=== PATIENT | female | born 1970 | race Caucasian/White ===

== ENCOUNTER 2020-12-20 08:40 | Emergency (ER) | payer BC ==
[~2020-12-20 08:40] MED LIST: BL IBUPROFEN200 MG PO; KEFLEX500 MG PO; LORTAB 5/3255 MG PO; MAXZIDE1 TAB PO; MEDDOSEPAK PO; NYSTATIN100000 M1 MT; PROAIR HFA IN; SILVADENE1 % TOP; SYMBICORT1 AE1 IN; ZITHROMAX250 MG PO
[2020-12-20] MEDS ORDERED: [UNRECOGNIZED DRUG - OTHER] PO (09:26)
[2020-12-20] MEDS ORDERED: ELIQUIS2.5 MG (09:26)
[2020-12-20] MEDS ORDERED: CARVEDILOL25 MG PO (09:26)
[2020-12-20] MEDS ORDERED: ENTRESTO 24-261 TAB PO (09:27)
[2020-12-20] MEDS ORDERED: SM OMEPRAZOL20 MG PO (09:27)
[2020-12-20] MEDS ORDERED: PAROXETINE20 MG PO (09:28)
[2020-12-20] MEDS ORDERED: [UNRECOGNIZED DRUG - OTHER] PO (09:30)
[2020-12-20 09:33] LABS: HEMATOCRIT 35.7 % (37.0-47.0); HEMOGLOBIN 11.6 g/dl (12.0-16.0); IMMATURE GRANULOCYTES 0.3 % (0.0-5.0); MEAN CELL VOLUME 89.7 fL CALC (80.0-100.0); MEAN CORPUSCULAR HGB 29.1 pG CALC (26.0-32.0); MEAN CORPUSCULAR HGB CONC 32.5 g/dL CAL (32.0-36.0); NEUT# 3.74 thou/uL (2.00-7.15); RED BLOOD COUNT 3.98 mill/uL (4.20-5.60); RED CELL DISTRI WIDTH 14.7 % (11.5-15.5); URINE BILIRUBIN - DIPSTICK NEGATIVE (NEGATIVE); URINE BLOOD DIPSTICK SMALL (NEGATIVE); URINE COLOR STRAW; URINE GLUCOSE - DIPSTICK NEGATIVE (NEGATIVE); URINE KETONE NEGATIVE (NEGATIVE); URINE LEUK ESTERASE NEGATIVE (NEGATIVE); URINE NITRITE - DIPSTICK NEGATIVE (Negative); URINE PROTEIN - DIPSTICK NEGATIVE (NEG-TRACE); URINE SPECIFIC GRAVITY 1.015; URINE UROBILINOGEN - DIPSTICK 0.2 E.U./dL (0.2)
[2020-12-20 09:34] LABS: URINE EPITHELIAL CELLS RARE EPI/hpf (0-FEW); URINE RBC 0-2 RBC/hpf (0-5)
[2020-12-20 09:47] LABS: ACT PARTIAL THROMBO TIME 23.1 SECONDS (20.0-32.5); INTERNATIONAL NORMALIZED RATIO 1.1 RATIO (0.7-1.3); PROTHROMBIN TIME 10.8 SECONDS (9.0-12.5)
[2020-12-20 09:54] LABS: ALBUMIN 4.4 g/dL (3.2-5.0); ALKALINE PHOSPHATASE 82 u/l (38-126); AMYLASE 45 u/l (30-110); ANION GAP 14 (6-22 (CALC)); BILIRUBIN, TOTAL 0.5 mg/dL (0.0-1.4); BUN 17 mg/dL (7-17); BUN/CREATININE RATIO 15 (12-20 (CALC)); CARBON DIOXIDE 26 mmol/l (22-30); CHLORIDE 105 mmol/l (95-108); CREATININE 1.2 mg/dL (0.5-1.0); ETHYL ALCOHOL 0 mg/dl (0-30); GFR 48 ML/MIN (>=60 (CALC)); GFR FOR AFR.AMER. 58 ML/MIN (>=60 (CALC)); LIPASE 50 u/l (23-300); POTASSIUM 4.1 mmol/l (3.5-5.1); SGOT/AST 24 u/l (14-36); SODIUM 140 mmol/l (137-146); TOTAL PROTEIN 6.9 g/dL (6.3-8.2)
[2020-12-20 12:15] VITALS: BP 120/91
== END 2020-12-20 12:15 | disposition home or self-care (01) | DRG 392 ==
LOC: ED 08:40
DX: R10.9 Unspecified abdominal pain (principal); R19.7 Diarrhea, unspecified; R11.0 Nausea; I50.9 Heart failure, unspecified; J45.909 Unspecified asthma, uncomplicated; I48.91 Unspecified atrial fibrillation; Z86.16 Personal history of COVID-19; Z86.711 Personal history of pulmonary embolism; Z86.718 Personal history of other venous thrombosis and embolism; Z20.822 Contact with and (suspected) exposure to COVID-19
CPT/HCPCS: Q9967

== ENCOUNTER 2021-06-23 08:21 | Emergency (ER) | payer BC ==
[~2021-06-23] VITALS: Ht 157.5 cm; Wt 83.0 kg
[~2021-06-23 08:21] MED LIST changes: +CARVEDILOL25 MG PO; +ELIQUIS2.5 MG PO; +ENTRESTO 24-261 TAB PO; +PAXIL30 MG PO; +QUETIAPINE FUM100 MG PO; +SM OMEPRAZOL20 MG PO; +[UNRECOGNIZED DRUG - OTHER] PO
[2021-06-23 08:59] LABS: HEMATOCRIT 35.4 % (37.0-47.0); HEMOGLOBIN 11.7 g/dl (12.0-16.0); MEAN CELL VOLUME 89.8 fL CALC (80.0-100.0); MEAN CORPUSCULAR HGB 29.7 pG CALC (26.0-32.0); MEAN CORPUSCULAR HGB CONC 33.1 g/dL CAL (32.0-36.0); NEUT# 5.56 thou/uL (2.00-7.15); RED BLOOD COUNT 3.94 mill/uL (4.20-5.60); RED CELL DISTRI WIDTH 14.9 % (11.5-15.5)
[2021-06-23 09:11] LABS: ALKALINE PHOSPHATASE 87 u/l (38-126); BILIRUBIN, TOTAL 0.6 mg/dL (0.0-1.4); BUN 22 mg/dL (7-17); BUN/CREATININE RATIO 22 (12-20 (CALC)); CARBON DIOXIDE 29 mmol/l (22-30); CHLORIDE 107 mmol/l (95-108); GFR 59 ML/MIN (>=60 (CALC)); GFR FOR AFR.AMER. > 60 ML/MIN (>=60 (CALC)); SGOT/AST 23 u/l (14-36); SODIUM 143 mmol/l (137-146); TOTAL PROTEIN 6.9 g/dL (6.3-8.2)
[2021-06-23 09:15] LABS: ANION GAP 10 (6-22 (CALC)); POTASSIUM 3.1 mmol/l (3.5-5.1)
[2021-06-23] MEDS ORDERED: MEDDOSEPAK PO (10:44)
[2021-06-23] MEDS ORDERED: ZPAK PO (10:44)
[2021-06-23 10:45] VITALS: BP 151/99
== END 2021-06-23 11:02 | disposition home or self-care (01) | DRG 203 ==
LOC: ED 08:21
DX: J45.909 Unspecified asthma, uncomplicated (principal); E87.6 Hypokalemia; I50.9 Heart failure, unspecified; I48.91 Unspecified atrial fibrillation; Z86.16 Personal history of COVID-19; Z86.711 Personal history of pulmonary embolism; Z20.822 Contact with and (suspected) exposure to COVID-19

== ENCOUNTER 2021-06-25 12:17 | Observation (INO) | payer BC ==
[~2021-06-25] VITALS: Ht 157.5 cm; Wt 83.1 kg
[~2021-06-25 12:17] MED LIST changes: +ZPAK PO
--- NOTE | 2021-06-25 12:20 | NUR ---
PT PRESENTS WITH SOB. RECENT VISIT TO ED T-2 DAYS PRIOR WITH ASTHMATIC BRONCHITIS. PT PROVIDED ANTIBIOTIC AND STERIOD WITH NO IMPROVEMENT OF SYMPTOMS. PT REPORTS INCREASING SOB TODAY.
[2021-06-25 13:18] LABS: HEMOGLOBIN 12.7 g/dl (12.0-16.0); IMMATURE GRANULOCYTES 0.8 % (0.0-5.0); MEAN CELL VOLUME 90.5 fL CALC (80.0-100.0); MEAN CORPUSCULAR HGB 29.5 pG CALC (26.0-32.0); MEAN CORPUSCULAR HGB CONC 32.6 g/dL CAL (32.0-36.0); NEUT# 9.03 thou/uL (2.00-7.15); RED BLOOD COUNT 4.31 mill/uL (4.20-5.60); RED CELL DISTRI WIDTH 14.8 % (11.5-15.5)
--- NOTE | 2021-06-25 13:20 | NUR ---
PATIENT SITTING UP IN BED RESTING IN NO ACUTE DISTRESS.
[2021-06-25 13:36] LABS: ALBUMIN 4.5 g/dL (3.2-5.0); ALKALINE PHOSPHATASE 92 u/l (38-126); ANION GAP 15 (6-22 (CALC)); BILIRUBIN, TOTAL 0.5 mg/dL (0.0-1.4); BUN 38 mg/dL (7-17); BUN/CREATININE RATIO 24 (12-20 (CALC)); CARBON DIOXIDE 27 mmol/l (22-30); CHLORIDE 102 mmol/l (95-108); CREATININE 1.6 mg/dL (0.5-1.0); GFR 34 ML/MIN (>=60 (CALC)); GFR FOR AFR.AMER. 42 ML/MIN (>=60 (CALC)); POTASSIUM 3.4 mmol/l (3.5-5.1); SGOT/AST 31 u/l (14-36); SODIUM 140 mmol/l (137-146); TOTAL PROTEIN 7.4 g/dL (6.3-8.2)
--- NOTE | 2021-06-25 14:20 | NUR ---
PATIENT SITTING IN BED RESTING. NO ACUTE DISTRESS.
[2021-06-25] MEDS ORDERED: OMEPRAZOLE20 MG PO (15:15)
--- NOTE | 2021-06-25 15:20 | NUR ---
PATIENT SITTING UP IN BED IN NO ACUTE DISTRESS.
[2021-06-25] MEDS ORDERED: MIRTAZAPINE15 MG PO (16:21)
[2021-06-25] MEDS ORDERED: HYDROXYZ HCL25 MG PO (16:21)
[2021-06-25] MEDS ORDERED: SEROQUEL XR50 MG PO (16:22)
[2021-06-25] MEDS ORDERED: ADVAIR DISK1 IN (16:23)
[2021-06-25] MEDS ORDERED: OMEPRAZOLE DR40 MG PO (16:25)
[2021-06-25] MEDS ORDERED: CARVEDILOL6.25 MG PO (16:25)
[2021-06-25] MEDS ORDERED: TORSEMIDE20 M1 PO (16:26)
--- NOTE | 2021-06-25 16:49 | NUR ---
PATIENT SITTING IN BED. OFFERED TOILETING. VISITOR AT BEDSIDE.
--- NOTE | 2021-06-25 17:00 | NUR ---
RECIVED REPORT FROM BRIAN FROM ER
[2021-06-25 17:38] VITALS: BP 162/91
--- NOTE | 2021-06-25 18:00 | NUR ---
PT SETTLED IN ROOM. ASSESSMENT WAS PERFORMED: HEART SOUNDS IRREGULAR. LUNG SOUNDS WHEEZING WITH EXPIRATORY POSTERIORLY. BOWEL SOUNDS ARE ACTIVE X4. RADIAL PULSE STRONG EQUALLY BILATERALLY. PEDAL PULSES STRONG EQUALLY BILATERALLY. SKIN IS WARM/DRY INTACT. #20G LAC IV IS PATENT INFUSING AZITHROMYCIN. PT IS CALM NOT SHOWING ANY SIGN OF DISTRESS. PT STATES NO PAIN AT THIS TIME. PT ENCOURAGED TO USE CALL LIGHT FOR ASSISTANCE. CALL LIGHT AND PERSONAL BELONGINGS ARE WITHIN REACH. ORIENTATED PT TO ROOM.
[2021-06-25 19:00] VITALS: BP 139/76
--- NOTE | 2021-06-25 19:30 | NUR ---
PT AWAKE IN HIGH FOWLERS WATCHING TV AND LAPTOP COMPUTER IN LAP. IV TUBING STILL CONNECTED TO THE PT WITH ABX PUMP TURNED OFF. SITE WAS FLUSHED, STILL PATENT/HEALTHY. PT AMBULATED TO RESTROOM AND BACK TO THE BED BECOMING VERY SOB WITH WHEEZING UPON AMBULATING. PT RECOVERED QUICKLY AND POC WAS DISCUSSED. SHE REPORTED WANTING TO LEAVE HOSPITAL TOMORROW PREFERABLY. MEDICATIONS WERE ALSO DISCUSSED AND I INFORMED HER THAT WE DO NOT CARRY ENTRESTO AND THAT IT WOULD NEED TO BE BROUGHT FROM HOME. SHE REPORTED THAT SHE DID NOT HAVE ANYBODY THAT COULD BRING IT THIS EVENING, BUT POSSIBLY TOMORROW IF SHE NEEDED TO STAY. SHE REPORTS FEELING MUCH BETTER THAN PRIOR TO ARRIVING TO HOSPITAL. IVF ADMINISTERED PER ORDERS AT THIS TIME AND PT INSTRUCTED TO CALL IF SHE FEELS CHEST PRESSURE OR AN INCREASE IN SOB, DUE TO THE FLUID RUNNING. SHE VERBALIZED UNDERSTANDING AND WE DISCUSSED THE BALANCING OF KIDNEY FUNCTION/LABS AND CHF ISSUES. SHE REPORTS THAT SHE TAKES A WATER PILL ALSO. CALL LIGHT IS W/IN REACH AND PT LEFT IN BED WITH COMPUTER IN LAP, LIGHTS AND TV ARE ON.
--- NOTE | 2021-06-25 21:10 | NUR ---
PT MEDICATED ORDERS PROVIDE. PT DENIES ANY NEEDS. SHE IS AWAKE, UPRIGHT IN BED WITH TV ON AND WORKING ON LAPTOP COMPUTER. NO S/O DISTRESS.
--- NOTE | 2021-06-25 21:45 | NUR ---
PT JUST RETURNING FROM RESTROOM, APPEARS TO TOLERATE AMBULATING BETTER THIS TIME, LESS WHEEZING AND SOB. URINE COLLECTED AND TAKEN TO LAB AT THIS TIME.
[2021-06-25 21:58] LABS: URINE BILIRUBIN - DIPSTICK NEGATIVE (NEGATIVE); URINE BLOOD DIPSTICK SMALL (NEGATIVE); URINE COLOR YELLOW; URINE GLUCOSE - DIPSTICK NEGATIVE (NEGATIVE); URINE KETONE NEGATIVE (NEGATIVE); URINE LEUK ESTERASE NEGATIVE (NEGATIVE); URINE PROTEIN - DIPSTICK NEGATIVE (NEG-TRACE); URINE SPECIFIC GRAVITY 1.025; URINE UROBILINOGEN - DIPSTICK 0.2 E.U./dL (0.2)
[2021-06-25 22:00] LABS: URINE NITRITE - DIPSTICK NEGATIVE (Negative)
[2021-06-25 22:06] LABS: URINE SQUAMOUS EPITHELIAL CELL FEW EPI/hpf (0-FEW); URINE WBC 0-2 WBC/hpf (0-5)
--- NOTE | 2021-06-26 00:49 | NUR ---
PT IV FOUND LEAKING AND BLOODY. IV REMOVED FROM RAC/SITE APPEARS HEALTHY, PT DENIES PAIN AT SITE. ATTEMPTS FOR NEW IV X2, NO ACCESS OBTAINED. WILL AWAIT ICU NURSE FOR ASSISTANCE.
--- NOTE | 2021-06-26 03:35 | NUR ---
pt awake, asked for additional ginerale. Ambulated to restroom, becoming mildly sob upon exertion.
[2021-06-26 04:00] VITALS: BP 133/65
[2021-06-26 06:06] LABS: HEMATOCRIT 34.4 % (37.0-47.0); HEMOGLOBIN 11.5 g/dl (12.0-16.0); MEAN CELL VOLUME 89.4 fL CALC (80.0-100.0); MEAN CORPUSCULAR HGB 29.9 pG CALC (26.0-32.0); MEAN CORPUSCULAR HGB CONC 33.4 g/dL CAL (32.0-36.0); RED BLOOD COUNT 3.85 mill/uL (4.20-5.60); RED CELL DISTRI WIDTH 14.8 % (11.5-15.5)
[2021-06-26 06:22] LABS: CREATININE 1.2 mg/dL (0.5-1.0); MAGNESIUM 1.8 mg/dL (1.6-2.3); POTASSIUM 3.7 mmol/l (3.5-5.1)
[2021-06-26 06:43] LABS: CHOLESTEROL HDL RATIO 1.9 (<4.4 (CALC))
--- NOTE | 2021-06-26 07:00 | NUR ---
RECIEVED REPORT FROM ASHWIN RASHEED
[2021-06-26 07:21] VITALS: BP 151/79
--- NOTE | 2021-06-26 07:21 | NUR ---
PT RESTING IN SEMI FOWLERS POSITION. PT IS A/O X3. ASSESSMENT AND VITALS COMPLETED. BP 151/79, HR 84, O2 93% ON ROOM AIR. RESPIRATIONS ARE EVEN AND UNLABORED WITH NO DISTRESS NOTED. LUNG SOUNDS ARE COURSE. HEART RHYTHM NORMAL WITH TELE IN PLACE. BOWEL SOUNDS ARE ACTIVE X4 QUADRANTS. #20G LAC INFUSING IWTH IVF PER ORDER, SITE REMAINS HEALTHY AND PATENT. SKIN INTACT. PULSES STRONG. PT COMPLAINS OF 3/10 ABD PAIN FROM COUGHING, PT TO BE MEDICATED PER EMAR. PT DENIES OF ANY ADDITIONAL PAINS OR DISCOMFORTS. ALL SAFETY PRECAUTIONS ARE IN PLACE WITH CALL LIGHT IN REACH. WILL CONTINUE TO MONITOR.
--- NOTE | 2021-06-26 10:17 | NUR ---
DR MAGALLON AND KAVON,ANRP AT BEDSIDE
[2021-06-26 11:25] VITALS: BP 124/80
[2021-06-26] MEDS ORDERED: ZITHROMAX250 MG PO (12:08)
[2021-06-26] MEDS ORDERED: PREDNISONE10 MG PO (12:09)
[2021-06-26] MEDS ORDERED: IPRATROPIU0.5 MG/3 M IN (12:09)
[2021-06-26] MEDS ORDERED: NEBULIZE1 (12:11)
--- NOTE | 2021-06-26 12:13 | NUR ---
PT RESTING IN SEMI FOWLERS POSITION WATCHING TV. RESPIRATIONS ARE EVEN AND UNLABORED WITH NO DISTRESS NOTED ON ROOM AIR. #20G REMAINS INFUSING WITH IVF PER ORDER, SITE REMAINS HEALTHY AND PATENT. TELE MONITORING IN PLACE. PT DENIES OF ANY PAINS OR DISCOMFORTS AT THIS TIME. ALL SAFETY PRECAUTIONS AER IN PLACE WITH CALL LIGHT IN REACH. WILL CONTINUE TO MONITOR.
--- NOTE | 2021-06-26 13:28 | NUR ---
PT EDUCATED ON DC INSTRUCTIONS AND NEW MEDICATIONS. PT VERBALIZED UNDERSTANDING. #20G RAC REMOVED WITH CATH STILL INTACT. TELE MONITORING REMOVED, ER NOTIFIED. WORK NOTE GIVEN TO PT. PT TO DRIVE HOME.
--- NOTE | 2021-06-26 13:37 | NUR ---
Discharge instructions given. Patient verbalizes understanding of same. Discharged in stable condition via Wheelchair to Home with staff. All belongings sent with pt. PT DC HOME VIA WHEELCHAIR IN STABLE CONDITION ACCOMPAINED BY MARILUZ DELACRUZ WITH ALL DC INSTRUCTIONS AND BELONGINGS.
== END 2021-06-26 13:37 | disposition home or self-care (01) | DRG 191 ==
LOC: ED 12:17 → ED-I 14:40 → ED 14:52 → MS2 14:53
PROVIDERS: Family Medicine; Nurse Practitioner; ADMIT Internal Medicine; ATTEND Internal Medicine
DX: J44.1 Chronic obstructive pulmonary disease with (acute) exacerbation (principal); J45.901 Unspecified asthma with (acute) exacerbation; N17.9 Acute kidney failure, unspecified; I11.0 Hypertensive heart disease with heart failure; I50.9 Heart failure, unspecified; I48.91 Unspecified atrial fibrillation; F41.9 Anxiety disorder, unspecified; K21.9 Gastro-esophageal reflux disease without esophagitis; F32.A Depression, unspecified; B33.24 Viral cardiomyopathy; Z87.891 Personal history of nicotine dependence; Z86.16 Personal history of COVID-19; Z86.711 Personal history of pulmonary embolism; Z79.01 Long term (current) use of anticoagulants; Z20.822 Contact with and (suspected) exposure to COVID-19
CPT/HCPCS: G0378

== ENCOUNTER 2021-06-29 14:47 | Observation (INO) | payer BC ==
[~2021-06-29] VITALS: Ht 157.5 cm; Wt 89.0 kg
[~2021-06-29 14:47] MED LIST changes: +ADVAIR DISK1 IN; +CARVEDILOL6.25 MG PO; +HYDROXYZ HCL25 MG PO; +IPRATROPIU0.5 MG/3 M IN; +MIRTAZAPINE15 MG PO; +NEBULIZE1; +OMEPRAZOLE DR40 MG PO; +OMEPRAZOLE20 MG PO; +PREDNISONE10 MG PO; +SEROQUEL XR50 MG PO; +TORSEMIDE20 M1 PO
--- NOTE | 2021-06-29 14:55 | NUR ---
PATIENT TO ROOM VIA EMS AND PHYSICIAN NOTIFIED OF PATIENT STATUS
--- NOTE | 2021-06-29 15:35 | NUR ---
PATIENT LYING IN BED. PATIENT MEDICATED.
[2021-06-29 15:53] LABS: HEMATOCRIT 39.8 % (37.0-47.0); HEMOGLOBIN 13.2 g/dl (12.0-16.0); IMMATURE GRANULOCYTES 1.1 % (0.0-5.0); MEAN CELL VOLUME 90.2 fL CALC (80.0-100.0); MEAN CORPUSCULAR HGB 29.9 pG CALC (26.0-32.0); MEAN CORPUSCULAR HGB CONC 33.2 g/dL CAL (32.0-36.0); NEUT# 12.17 thou/uL (2.00-7.15); RED BLOOD COUNT 4.41 mill/uL (4.20-5.60); RED CELL DISTRI WIDTH 14.8 % (11.5-15.5)
[2021-06-29 15:55] LABS: URINE BILIRUBIN - DIPSTICK NEGATIVE (NEGATIVE); URINE BLOOD DIPSTICK SMALL (NEGATIVE); URINE COLOR YELLOW; URINE GLUCOSE - DIPSTICK NEGATIVE (NEGATIVE); URINE KETONE NEGATIVE (NEGATIVE); URINE LEUK ESTERASE TRACE (NEGATIVE); URINE PH 6.5 (4.5-8.0); URINE PROTEIN - DIPSTICK NEGATIVE (NEG-TRACE); URINE SPECIFIC GRAVITY <=1.005; URINE UROBILINOGEN - DIPSTICK 0.2 E.U./dL (0.2)
[2021-06-29 16:06] LABS: URINE NITRITE - DIPSTICK NEGATIVE (Negative)
[2021-06-29 16:12] LABS: ALBUMIN 4.1 g/dL (3.2-5.0); BILIRUBIN, TOTAL 0.4 mg/dL (0.0-1.4); CREATININE 1.2 mg/dL (0.5-1.0); POTASSIUM 3.1 mmol/l (3.5-5.1); TOTAL PROTEIN 6.8 g/dL (6.3-8.2); URINE SQUAMOUS EPITHELIAL CELL FEW EPI/hpf (0-FEW)
--- NOTE | 2021-06-29 16:30 | NUR ---
PATIENT DENIES NEEDS AT THIS TIME.
--- NOTE | 2021-06-29 17:30 | NUR ---
PATIENT IN BED DENIES NEEDS
[2021-06-29] MEDS ORDERED: METRONIDAZOLE500 MG PO (17:43)
[2021-06-29] MEDS ORDERED: CIPROFLOXACN500 MG PO (17:43)
[2021-06-29] MEDS ORDERED: HYDROCO/APAP1 TA9 PO (17:43)
[2021-06-29] MEDS ORDERED: ONDANSETRON4 MG PO (17:43)
--- NOTE | 2021-06-29 18:30 | NUR ---
PAIENT LYING IN BED/ MEDICATED FOR COMFORT. DENIES FURTHER NEEDS AT THIS TIME.
--- NOTE | 2021-06-29 19:35 | NUR ---
W/P/D SKIN PT RATES PAININ ABD AT 2 ON SCALE NO NAUSEA.PT REPORT TO JAMEY RASHEED ON MS
--- NOTE | 2021-06-29 19:40 | NUR ---
PT TRANSPORTED TO RN 273 VIA stretcher in stable condition
[2021-06-29 20:00] VITALS: BP 178/101
--- NOTE | 2021-06-29 20:00 | NUR ---
PT ARRIVED TO MED SURG VIA STRETCHER AND SELF AMBULATED TO THE BED. PT APPEARS TO BE IN PAIN AT THIS TIME. ED NURSE REPORTS HAIVING MEDICATED PT FOR PAIN. REPORTEDLY IN HER BACK AND LEGS PER PT. PHYSICIAN NOTIFIED. V/S ASSESSED, BP ELEVATED AND WILL REASSESS POST PAIN MEDICATION. K-RIDER IS JUST COMPLETING UPON PT ARRIVING TO THE MS ROOM. IV SITE FLUSHED PATENT. PT WAS ORIENTED TO ROOM, CALL SYSTEM, LIGHTS, TV AND BED.
--- NOTE | 2021-06-29 22:21 | NUR ---
PT MEDICATED FOR PAIN 7/10 ON PAIN SCALE REPORTED TO BE IN LOWER ABD BILAT. PT DENIES N/V/D AT THIS TIME. LIGHTS ARE OFF AND PT IS WATCHING TV SHOW.
--- NOTE | 2021-06-29 23:48 | NUR ---
PT MEDICATED WITH IV ANTIBIOTIC THERAPY. LIGHTS ARE TURNED OUT, SHE IS AWAKE WATCHING TV. ICE PROVIDED AND DIET DISCUSSED AT THIS TIME. I OFFERED HER ADDITIONAL CLEAR LIQUIDS AT THIS TIME, DENIED ANY. WATER AND ICE CHIPS PROVIDED. CALL LIGHT IS W/IN REACH.
[2021-06-30] VITALS (12 sets, daily range): BP systolic 140–215; BP diastolic 73–118
--- NOTE | 2021-06-30 01:24 | NUR ---
PT MEDICATED ORDER PROVIDE FOR PAIN 7/10 ON PAIN SCALE REPORTEDLY IN BACK AND LOWER ABD
--- NOTE | 2021-06-30 04:06 | NUR ---
PT MEDICATED FOR PAIN IN LEGS, BACK AND ABD
--- NOTE | 2021-06-30 05:10 | NUR ---
PT WAS SLEEPING SOUNDLY, AWOKE TO MY VOICE. IV ANTIBIOTICS ADMINISTERED AT THIS TIME.
--- NOTE | 2021-06-30 06:35 | NUR ---
REPORT FROM KATHYA CHRISTOPHER. ASSUMED PT CARE.
--- NOTE | 2021-06-30 07:53 | NUR ---
PHONE CALL PLACED TO PHARMACY REGARDING PRN HYDRALAZINE, MEDICATION NOT PROFILED DUE TO PHARMACIST IN ED EMERGENCY. WILL MEDICATE PT FOR PAIN AT THIS TIME AND CONTINUE TO MONITOR.
--- NOTE | 2021-06-30 08:00 | NUR ---
PT MEDICATED FOR BACK PAIN 04/02. PRN HYDRALAZINE PROFILED BELKYS CHRISTOPHER TO ADMINISTER FOR BP OF 215/118 HR 124. WILL REASSESS AND CONTINUE TO MONITOR.
--- NOTE | 2021-06-30 08:06 | NUR ---
APPRESOLINE ADMINISTEER 10MG AT THIS TIME PATIENT TOLERATED ADMININSTRATION WITHOUT ISSUE. WILL CONTINUE TO MONITOR.
--- NOTE | 2021-06-30 09:15 | NUR ---
NOTIFIED VISHNU CASTLE OF CONTINUED ELEVATED HR OF 126 AND BP 175/109 AFTER PRN MEDICATION ADMINISTRATION. NEW ORDERS. PT PLACED ON TELEMETRY AT THIS TIME. RN TO ADMINISTER IV MEDICATIONS ONCE PROFILED BY PHARMACY. WILL CONTINUE TO MONITOR AND REASSESS.
[2021-06-30 09:19] LABS: ANION GAP 11 (6-22 (CALC)); BUN 18 mg/dL (7-17); BUN/CREATININE RATIO 17 (12-20 (CALC)); CARBON DIOXIDE 25 mmol/l (22-30); CHLORIDE 104 mmol/l (95-108); CREATININE 1.1 mg/dL (0.5-1.0); GFR 53 ML/MIN (>=60 (CALC)); GFR FOR AFR.AMER. > 60 ML/MIN (>=60 (CALC)); MAGNESIUM 1.6 mg/dL (1.6-2.3); POTASSIUM 3.2 mmol/l (3.5-5.1); SODIUM 137 mmol/l (137-146)
--- NOTE | 2021-06-30 09:48 | NUR ---
PATIENT LAYING IN BED AND THIS NUCLEAR OPERATIONS SPECIALIST STARTED INFUSING 5MG OF IV LOPRESSOR AT THIS TIME. PATIENT BEGAN TO BECOME SHORT OF BREATH COMPLAINING OF WEIGHT ON HER CHEST THIS NURSE CALLED FOR A RAPID RESPONSE AND MEDICATION STOPPED AT THIS TIME. PATIENT WAS GIVEN 2.5MG OF IV LOPRESSOR PRIOR TO STOPPAGE OF MEDICATION. RAPID RESPONSE TEAM UP TO FLOOR. O2 STARTED EKG PREFORMED DR. MAGALLON AT BEDSIDE.
--- NOTE | 2021-06-30 10:14 | NUR ---
CALLED TO BEDSIDE FOR RAPID RESPONSE. O2 STARTED AT 3 LITER NASAL CANNULA, WITH SATS OF 96%. PT HAD AN AUDIBLE WHEEZE, SO PHYSICIAN GAVE VERBAL ORDER FOR XOPENEX TO BE GIVEN STAT. TREATMENT GIVEN WITH NO ADVERSE EFFECTS. PT APPEARS TO BE BREATHING EASIER NOW WITH RESPIRATIONS UNLABORED AND EVEN. HR 105 RR 20 WITH WHHEEZES THROUGHOUT, THAT IMPROVED POST TREATMENT. RN/RT TO CONTINUE TO EVALUATE PT NEEDED.
--- NOTE | 2021-06-30 10:29 | NUR ---
PT HOME MEDICATION ENTRESTO OBTAINED AT THIS TIME AND SENT TO PHARMACY.
--- NOTE | 2021-06-30 13:28 | NUR ---
PT MOTHER MILAGROS CALLED FOR UPDATE. PASSCODE VERIFIED. UPDATE PROVIDED.
--- NOTE | 2021-06-30 16:16 | NUR ---
PT MEDICATED FOR BACK, AND KNEE PAIN. PT DENIES ANY NAUSEA OR SOB. NO APPARENT DISTRESS NOTED. NO CURRENT WANTS OR NEEDS. CALL LIGHT WITHIN REACH. WILL CONTINUE TO MONITOR.
--- NOTE | 2021-06-30 20:09 | NUR ---
PT MEDICATED FOR PAIN 3/10 ON PAIN SCALE, ASKING FOR HER "LORTAB". ASSESSMENT HAS ALSO BEEN COMPLETED, ABD FIRM WITH TENDERNESS TO LEFT SIDE BOTH QUADS, HYPO BOWEL SOUNDS. REPORTS PAIN IN LOWER BACK, ABD, KNEES, FEET. DENIES STOOL OUTPUT DURING DAY SHIFT. NEW ICEWATER AND GINERALE PROVIDED, SHE IS EATING PUDDING AT THIS TIME. CALL LIGHT W/IN REACH AND PT ADVISED TO CALL.
--- NOTE | 2021-06-30 23:08 | NUR ---
PT CALLED ASKING FOR PAIN MEDICATION. I ADVISED HER THAT IT WAS TOO EARLY, BUT COULD I GET HER ANY OTHER COMFORT MEASURES TO ASSIST, SHE DENIED AND ASKED IF SHE COULD HAVE A XANAX/PROVIDED AT THIS TIME. SHE IS UPRIGHT IN BED WATCHING TV.
[2021-07-01] VITALS: BP 160/104
--- NOTE | 2021-07-01 00:01 | NUR ---
PT MEDICATED FOR PAIN REPORTED 4/10 ON PAIN SCALE IN HER LOWER BACK, KNEES AND ABD. SHE IS AWAKE WATDCHING HGTV. NO S/O DISTRESS OR SOB. PT DENIES ANY OTHER NEEDS AT THIS TIME. BELONGINGS, DRINK, SNACKS AT BEDSIDE TABLE AND CALL LIGHT W/IN REACH. IV ANTIBIOTICS ADMINISTERED AT THIS TIME.
[2021-07-01 00:36] VITALS: BP 147/79
--- NOTE | 2021-07-01 00:40 | NUR ---
BP REASSESSED, RESPONDED TO MEDICATION.
[2021-07-01 03:57] VITALS: BP 164/94
--- NOTE | 2021-07-01 04:15 | NUR ---
PT MEDICATED FOR PAIN PER REQUEST FOR 4/10 ON PAINSCALE REPORTEDLY IN BACK, KNEES, ABD. DENIES ANY OTHER NEEDS AT THIS TIME.
[2021-07-01 05:09] LABS: HEMATOCRIT 37.6 % (37.0-47.0); HEMOGLOBIN 12.4 g/dl (12.0-16.0); MEAN CORPUSCULAR HGB 29.7 pG CALC (26.0-32.0); RED BLOOD COUNT 4.18 mill/uL (4.20-5.60); RED CELL DISTRI WIDTH 15.2 % (11.5-15.5)
--- NOTE | 2021-07-01 05:39 | NUR ---
PT SLEEPING, DID NOT AWAKE TO MY ENTERING THE ROOM. IV ANTIBIOTICS ADMINISTERED AT THIS TIME.
[2021-07-01 05:43] LABS: ANION GAP 8 (6-22 (CALC)); BUN 14 mg/dL (7-17); BUN/CREATININE RATIO 16 (12-20 (CALC)); CARBON DIOXIDE 27 mmol/l (22-30); CHLORIDE 109 mmol/l (95-108); CREATININE 0.9 mg/dL (0.5-1.0); GFR > 60 ML/MIN (>=60 (CALC)); GFR FOR AFR.AMER. > 60 ML/MIN (>=60 (CALC)); POTASSIUM 3.9 mmol/l (3.5-5.1); SODIUM 140 mmol/l (137-146)
--- NOTE | 2021-07-01 07:00 | NUR ---
RECIEVED REPORT FROM ASHWIN RASHEED
[2021-07-01 07:40] VITALS: BP 165/106
--- NOTE | 2021-07-01 07:40 | NUR ---
PT RESTING IN SEMI FOWLERS POSITION. PT IS A/O X3. ASSESSMENT AND VITALS COMPLETED. BP 165/106, HR 103, O3 958% ON ROOM AIR. RESPIRATIONS ARE EVEN AND UNLABORED WITH NO DISTRESS NOTED. WHEEZING PRESENT UPON ASCULTATION. HEART RHYTHM NORMAL WITH TELE IN PLACE, ST PER ER MONITORING. BOWEL SOUNDS ARE ACTIVE. #20G LAC INFUSING PER ORDER, SITE REMAINS HEALTHY AND PATENT.#20G LH EMS FLUSHED, SITE APPEARS HEALTHY AND PATENT. SKIN INTACT. PT COMPLAINS OF 2/10 LOWER ABD PAIN, PT TO BE MEDICATED PER EMAR. PT DENIES OF ANY ADDITIONAL NEEDS. ALL SAFTEY PRECAUTIONS ARE IN PLACE WITH CALL LIGHT IN REACH. WILL CONTINUE TO MONITOR
--- NOTE | 2021-07-01 08:52 | NUR ---
SCHEDULED MEDICATIONS ADMINISTERED. PT REQUEST BREATHING TRETAMENT. RT NOTIFIED
--- NOTE | 2021-07-01 09:00 | NUR ---
RT AT BEDSIDE
--- NOTE | 2021-07-01 10:20 | NUR ---
PT COMPLAINS OF 6/10 ABD PAIN, PT MEDICATED WITH LORTAB.
[2021-07-01 10:45] VITALS: BP 149/91
--- NOTE | 2021-07-01 11:22 | NUR ---
DR MONROE AND KAVON,ANMAXIMO AT BEDSIDE
--- NOTE | 2021-07-01 11:46 | NUR ---
PT RESTING IN SEMI FOWLERS POSITION EATING LUNCH. RESPIRATIONS ARE EVEN AND UNLABORED WITH NO DISTRESS NOTED. #20G LAC INFUSING WITH IVF PER ORDER, SITE REMAINS HEALTHY AND PATENT. PT [id number] PAIN IS NOW 2/10 AFTER LORTAB. PT DENIES OF ANY ADDITIONAL NEEDS. ALL SAFTEY PRECAUTIONS ARE IN PLACE WITH CALL LIGHT IN REACH.
[2021-07-01] MEDS ORDERED: ULTRAM50 M1 PO (13:05)
--- NOTE | 2021-07-01 14:22 | NUR ---
PT EDUCATED ON DC INSTRUCTIONS AND NEW MEDICATIONS. #20G LAC AND #20GH LH REMOVED WITH CATH STILL INTACT. TELE REMOVED, ER NOTIFIED. TRANSPORTATION CALLED.
--- NOTE | 2021-07-01 14:30 | NUR ---
Discharge instructions given. Patient verbalizes understanding of same. Discharged in stable condition via to Home with staff. All belongings sent with pt. PT DC HOME VIA WHEELCHAIR IN STABLE CONDITION ACCOMPAINED BY MARILUZ SILVA WITH ALL DC INTRUCTIONS AND HOME MEDICATION.
== END 2021-07-01 14:32 | disposition home or self-care (01) | DRG 392 ==
LOC: ED 14:47 → ED-I 17:50 → ED 18:05 → MS2 18:06
PROVIDERS: Family Medicine; ADMIT Internal Medicine; ATTEND Internal Medicine
DX: R10.32 Left lower quadrant pain (principal); I42.9 Cardiomyopathy, unspecified; I13.0 Hypertensive heart and chronic kidney disease with heart failure and stage 1 through stage 4 chronic kidney disease, or unspecified chronic kidney disease; N17.9 Acute kidney failure, unspecified; R19.7 Diarrhea, unspecified; R10.31 Right lower quadrant pain; M25.562 Pain in left knee; M25.561 Pain in right knee; M25.572 Pain in left ankle and joints of left foot; M25.571 Pain in right ankle and joints of right foot; M25.552 Pain in left hip; M25.551 Pain in right hip; I50.9 Heart failure, unspecified; N18.9 Chronic kidney disease, unspecified; I48.91 Unspecified atrial fibrillation; F41.0 Panic disorder [episodic paroxysmal anxiety]; E87.6 Hypokalemia; K21.9 Gastro-esophageal reflux disease without esophagitis; F32.A Depression, unspecified; J44.9 Chronic obstructive pulmonary disease, unspecified; Z86.711 Personal history of pulmonary embolism; Z79.52 Long term (current) use of systemic steroids; Z79.01 Long term (current) use of anticoagulants; Z86.16 Personal history of COVID-19; Z20.822 Contact with and (suspected) exposure to COVID-19
CPT/HCPCS: G0378; J1650; Q9967

== ENCOUNTER 2021-09-15 08:55 | Emergency (ER) | payer BC ==
[~2021-09-15] VITALS: Ht 157.5 cm; Wt 80.0 kg
[~2021-09-15 08:55] MED LIST changes: +CIPROFLOXACN500 MG PO; +HYDROCO/APAP1 TA9 PO; +METRONIDAZOLE500 MG PO; +ONDANSETRON4 MG PO; +ULTRAM50 M1 PO
[2021-09-15] MEDS ORDERED: TORADOL PO (13:50)
[2021-09-15] MEDS ORDERED: MEDDOSEPAK PO (13:50)
[2021-09-15] MEDS ORDERED: FLEXERIL5 M1 PO (13:50)
[2021-09-15 13:54] VITALS: BP 119/71
== END 2021-09-15 14:16 | disposition home or self-care (01) | DRG 552 ==
LOC: ED 08:55
DX: M54.42 Lumbago with sciatica, left side (principal); I50.9 Heart failure, unspecified; I48.91 Unspecified atrial fibrillation; J45.909 Unspecified asthma, uncomplicated; Z86.711 Personal history of pulmonary embolism; Z86.16 Personal history of COVID-19

== ENCOUNTER 2021-10-18 07:06 | Observation (INO) | payer BC ==
[~2021-10-18] VITALS: Ht 157.5 cm; Wt 78.0 kg
[~2021-10-18 07:06] MED LIST changes: +FLEXERIL5 M1 PO; +TORADOL PO
--- NOTE | 2021-10-18 07:22 | NUR ---
PT ESCORTED VIA EMS STRETCHER TO ROOM 15 FOR EVALUATION OF GENERALIZED PAIN/LEG PAIN AND ABNORMAL LABS
[2021-10-18 07:52] LABS: HEMATOCRIT 32.8 % (37.0-47.0); HEMOGLOBIN 10.6 g/dl (12.0-16.0); IMMATURE GRANULOCYTES 0.1 % (0.0-5.0); MEAN CELL VOLUME 90.9 fL CALC (80.0-100.0); MEAN CORPUSCULAR HGB 29.4 pG CALC (26.0-32.0); MEAN CORPUSCULAR HGB CONC 32.3 g/dL CAL (32.0-36.0); NEUT# 5.53 thou/uL (2.00-7.15); RED BLOOD COUNT 3.61 mill/uL (4.20-5.60); RED CELL DISTRI WIDTH 17.1 % (11.5-15.5)
[2021-10-18 08:11] LABS: ALBUMIN 3.7 g/dL (3.2-5.0); ALKALINE PHOSPHATASE 77 u/l (38-126); ANION GAP 12 (6-22 (CALC)); BILIRUBIN, TOTAL 0.4 mg/dL (0.0-1.4); BUN 11 mg/dL (7-17); BUN/CREATININE RATIO 10 (12-20 (CALC)); CARBON DIOXIDE 27 mmol/l (22-30); CHLORIDE 101 mmol/l (95-108); CREATININE 1.1 mg/dL (0.5-1.0); GFR 53 ML/MIN (>=60 (CALC)); GFR FOR AFR.AMER. > 60 ML/MIN (>=60 (CALC)); POTASSIUM 3.6 mmol/l (3.5-5.1); SGOT/AST 26 u/l (14-36); SODIUM 136 mmol/l (137-146); TOTAL PROTEIN 6.3 g/dL (6.3-8.2)
--- NOTE | 2021-10-18 08:20 | NUR ---
PATIENT ASSISTED TO BSC STATES SHE UNABLE TO PRODUCE URINE SAMPLE AT THIS TIME
[2021-10-18 08:23] LABS: MYOGLOBIN 28 ng/mL (0 - 62)
--- NOTE | 2021-10-18 09:00 | NUR ---
Reassessment of patient completed. No distress noted.
[2021-10-18] MEDS ORDERED: KLOR-CON M2020 MEQ PO (09:37)
[2021-10-18] MEDS ORDERED: MAGNESIUM400 M1 PO (09:38)
--- NOTE | 2021-10-18 11:22 | NUR ---
PATIENT ASSISTED TO BSC
[2021-10-18 12:32] LABS: URINE BILIRUBIN - DIPSTICK NEGATIVE (NEGATIVE); URINE BLOOD DIPSTICK SMALL (NEGATIVE); URINE COLOR YELLOW; URINE GLUCOSE - DIPSTICK NEGATIVE (NEGATIVE); URINE KETONE NEGATIVE (NEGATIVE); URINE LEUK ESTERASE NEGATIVE (NEGATIVE); URINE PROTEIN - DIPSTICK TRACE mg/dL (NEG-TRACE); URINE SPECIFIC GRAVITY >=1.030; URINE UROBILINOGEN - DIPSTICK 0.2 E.U./dL (0.2)
[2021-10-18 12:34] LABS: URINE AMORPH SEDIMENT MANY hpf (NONE-FEW); URINE NITRITE - DIPSTICK NEGATIVE (Negative); URINE RBC 0-2 RBC/hpf (0-5)
--- NOTE | 2021-10-18 14:20 | NUR ---
FIRST ATTEMPT TO CALL REPORT
--- NOTE | 2021-10-18 14:44 | NUR ---
REPORT TO DARREN CHRISTOPHER
--- NOTE | 2021-10-18 15:10 | NUR ---
REPORT RECEIVED FROM VINICIUS IN ED, PT ARRIVED ON UNIT @ 1500 TRANSPORTED VIA W/C BY ED STAFF AND SETTTLED IN BED. C/O VAUGHN LEG PAIN ON PALPATION, LEGS SWOLEN, TELE MONITOR IN PLACE,ORIENTED TO ROOM AND CALL HERNDON, VITAL SIGNS MEASURED AND DOCUMENTED, BED LOCKED IN LOWEST POSITION.
[2021-10-18 15:14] VITALS: BP 129/69
[2021-10-18 19:00] VITALS: BP 110/62
--- NOTE | 2021-10-18 19:43 | NUR ---
PT RESTING IN BED, NO SIGNS OF DISTRESS NOTED, RESP EVEN AND UNLABORED. PT ALERT AND ORIENTED X3, DISCUSSED POC, PT C/O PAIN TO BLE GREATER ON THE LEFT, TENDER TO TOUCH, SKIN WARM, DRY, PEDAL PULSES EQUAL AND STRONG. SKIN INTACT. PT MEDICATED PER MAR, ASSESSMENT REVIEW COMPLETED, CALL LIGHT IN REACH,CONTINUE TO MONITOR.
--- NOTE | 2021-10-18 20:30 | NUR ---
PT C/O MD DANIS NOTIFIED. MYLANTA ORDERED, MEDICATED PER MAR, NO SIGNS OF DISTRESS NOTED, RESP EVEN AND UNLABORED, CALL LIGHT IN REACH,CONTINUE TO MONITOR.
--- NOTE | 2021-10-18 22:40 | NUR ---
PT CALLED REQUESTING NURSE, SOFTWARE LICENSING ANALYST ENTERED ROOM PT TEARFUL C/O OF SHOOTING PAIN TO L FOOT, STATES SHE CANT BREATHE, PULSE OX 97% RA, ENCOURAGED DEEP BREATHING, MD NOTIFIED AND ORDER FOR MORPHINE ENTERED. PT MEDICATED PER OCT, ICE PACKS PROVIDED. CALL LIGHT IN REACH,CONTINUE TO MONITOR.
--- NOTE | 2021-10-18 23:35 | NUR ---
PT RESTING IN BED, NO SIGNS OF DISTRESS NOTED, RESP EVEN AND UNLABORED. CALL LIGHT IN REACH,CONTINUE TO MONITOR.
[2021-10-19] VITALS: BP 111/69
--- NOTE | 2021-10-19 01:49 | NUR ---
PT CALLED C/O PAIN 12/31 TO BLE,MEDICATED FOR PAIN, CALL LIGHT IN REACH,CONTINUE TO MONITOR.
[2021-10-19 04:00] VITALS: BP 121/94
--- NOTE | 2021-10-19 05:41 | NUR ---
PT RESTING IN BED, C/O PAIN MEDICATED PER MAR, NO SIGNS OF DISTRESS NOTED, RESP EVEN AND UNLABORED. CALL LIGHT IN REACH,CONTINUE TO MONITOR.
[2021-10-19 06:16] LABS: ALBUMIN 3.2 g/dL (3.2-5.0); ALKALINE PHOSPHATASE 73 u/l (38-126); ANION GAP 8 (6-22 (CALC)); BILIRUBIN, TOTAL 0.5 mg/dL (0.0-1.4); BUN 11 mg/dL (7-17); BUN/CREATININE RATIO 11 (12-20 (CALC)); CARBON DIOXIDE 29 mmol/l (22-30); CHLORIDE 99 mmol/l (95-108); GFR 59 ML/MIN (>=60 (CALC)); GFR FOR AFR.AMER. > 60 ML/MIN (>=60 (CALC)); POTASSIUM 3.3 mmol/l (3.5-5.1); SGOT/AST 22 u/l (14-36); SODIUM 132 mmol/l (137-146); TOTAL PROTEIN 5.5 g/dL (6.3-8.2)
--- NOTE | 2021-10-19 07:35 | NUR ---
SHIFT CHANGE REPORT, PT CRYING TEARS AT THIS TIME C/O LEG PAIN AND STATING LORTAB GIVEN EARLIER WAS INEFFECTIVE, ADVISED MD WAS NOTIFIED OF CONCERN AND GAVE ORDERS WHICH WILL BE EXECUTED IN TIMELY MANNER. IVF INFUSING, TELE MONITOR IN PLACE, CALL HERNDON IN REACH AND BED LOCKED IN LOWEST POSITION.
[2021-10-19 07:47] VITALS: BP 138/70
[2021-10-19] MEDS ORDERED: QUETIAPINE FUMA50 M1 PO (08:41)
[2021-10-19 10:59] VITALS: BP 114/57
--- NOTE | 2021-10-19 11:46 | NUR ---
RELAXING IN BED AND GETTING READY TO HAVE MEAL, PAIN CONTROLLED WITH IV ANALGESICS, ADVISED PT TO DISCUSS CONCERNS WITH MD DURING ROUNDING.
--- NOTE | 2021-10-19 16:00 | NUR ---
RESTING IN BED PAIN MUCH CONTROLLED WITH NEW ORDER, WILL CONTINUE TO MONITOR.
[2021-10-19 16:03] VITALS: BP 90/54
[2021-10-19 19:22] VITALS: BP 103/54
--- NOTE | 2021-10-19 20:06 | NUR ---
PT RESTING IN BED, NO SIGNS OF DISTRESS NOTED,RESP EVEN AND UNLABORED. PT ALERT AND ORIENTED X3, NO EDEMA, DISCUSSED POC, PT STATES SHE FEELS MUCH BETTER TODAY SINCE STARTING TORADOL. PT ABLE TO TOLERATE AMBULATING TO BATHROOM, PT MEDICATED PER MAR. ASSESSMENT REVIEW COMPLETED, CALL LIGHT IN REACH, CONTINUE TO MONITOR.
--- NOTE | 2021-10-19 21:53 | NUR ---
PT RESTING IN BED, NO SIGNS OF DISTRESS NOTED, RESP EVEN AND UNLABORED. PT C/O PAIN TO LLE, MEDICATED PER OCT. CALL LIGHT IN REACH,CONTINUE TO MONITOR.
[2021-10-20] VITALS: BP 127/88
--- NOTE | 2021-10-20 | NUR ---
PT RESTING IN BED WITH EYES CLOSED, NO SIGNS OF DISTRESS NOTED, RESP EVEN AND UNLABORED, CALL LIGHT IN REACH,CONTINUE TO MONITOR.
[2021-10-20 03:59] VITALS: BP 122/71
--- NOTE | 2021-10-20 04:00 | NUR ---
PT RESTING IN BED, NO SIGNS OF DISTRESS NOTED, RESP EVEN AND UNLABORED. CALL LIGHT IN REACH,CONTINUE TO MONITOR.
[2021-10-20 05:37] LABS: ANION GAP 12 (6-22 (CALC)); BUN 14 mg/dL (7-17); BUN/CREATININE RATIO 12 (12-20 (CALC)); CARBON DIOXIDE 28 mmol/l (22-30); CHLORIDE 100 mmol/l (95-108); CREATININE 1.1 mg/dL (0.5-1.0); GFR 53 ML/MIN (>=60 (CALC)); GFR FOR AFR.AMER. > 60 ML/MIN (>=60 (CALC)); MAGNESIUM 2.5 mg/dL (1.6-2.3); POTASSIUM 3.9 mmol/l (3.5-5.1); SODIUM 136 mmol/l (137-146)
--- NOTE | 2021-10-20 07:00 | NUR ---
SHIFT CHANGE REPORT, PT SLEEPING BUT AWAKENS TO VERBAL STIMULI, DENIES PAIN AT THIS TIME AND STATES SHE FEELS MUCH BETTER, IVF INFUSING, TELE MONITOR IN PLACE, CALL HERNDON IN REACH AND BED LOCKED IN LOWEST POSITION.
[2021-10-20 09:09] VITALS: BP 107/58
[2021-10-20 09:13] VITALS: BP 107/58
[2021-10-20] MEDS ORDERED: MEDDOSEPAK PO (13:01)
[2021-10-20] MEDS ORDERED: TORADOL PO (13:01)
--- NOTE | 2021-10-20 16:09 | NUR ---
Discharge instructions given. Patient verbalizes understanding of same. Discharged in condition via Wheelchair to Home with family. All belongings sent with pt.
== END 2021-10-20 15:54 | disposition home or self-care (01) | DRG 641 ==
LOC: ED 07:06 → ED-I 11:06 → ED 11:16 → MS2 11:17
PROVIDERS: Emergency Medicine; ADMIT Internal Medicine; ATTEND Internal Medicine
DX: E83.42 Hypomagnesemia (principal); E83.51 Hypocalcemia; E87.6 Hypokalemia; R00.0 Tachycardia, unspecified; I50.9 Heart failure, unspecified; I48.91 Unspecified atrial fibrillation; J44.9 Chronic obstructive pulmonary disease, unspecified; F41.9 Anxiety disorder, unspecified; F32.A Depression, unspecified; Z79.01 Long term (current) use of anticoagulants; Z86.711 Personal history of pulmonary embolism; Z86.16 Personal history of COVID-19; Z20.822 Contact with and (suspected) exposure to COVID-19
CPT/HCPCS: G0378; J3475

== ENCOUNTER 2021-11-08 14:20 | Observation (INO) | payer BC ==
[2021-11-08] VITALS (9 sets, daily range): BP systolic 116–164; BP diastolic 68–126
[~2021-11-08] VITALS: Ht 157.5 cm; Wt 81.0 kg
[~2021-11-08 14:20] MED LIST changes: -CARVEDILOL6.25 MG PO; +COREG12.5 MG PO; -ELIQUIS2.5 MG PO; +ELIQUIS5 MG PO; -HYDROXYZ HCL25 MG PO; +HYDROXYZ HCL50 MG PO; +KLOR-CON M2020 MEQ PO; +MAGNESIUM400 M1 PO; +QUETIAPINE FUMA50 M1 PO
--- NOTE | 2021-11-08 14:20 | NUR ---
PT TO ROOM 14 VIA EMS.
[2021-11-08 15:15] LABS: HEMATOCRIT 57.7 % (37.0-47.0); HEMOGLOBIN 18.9 g/dl (12.0-16.0); IMMATURE GRANULOCYTES 0.2 % (0.0-5.0); MEAN CORPUSCULAR HGB 29.8 pG CALC (26.0-32.0); MEAN CORPUSCULAR HGB CONC 32.8 g/dL CAL (32.0-36.0); NEUT# 4.94 thou/uL (2.00-7.15); RED BLOOD COUNT 6.34 mill/uL (4.20-5.60); RED CELL DISTRI WIDTH 18.9 % (11.5-15.5)
[2021-11-08 15:27] LABS: ALBUMIN 3.4 g/dL (3.2-5.0); ALKALINE PHOSPHATASE 88 u/l (38-126); ANION GAP 14 (6-22 (CALC)); BILIRUBIN, TOTAL 0.7 mg/dL (0.0-1.4); BUN 9 mg/dL (7-17); BUN/CREATININE RATIO 11 (12-20 (CALC)); CARBON DIOXIDE 23 mmol/l (22-30); CHLORIDE 103 mmol/l (95-108); CREATININE 0.8 mg/dL (0.5-1.0); GFR > 60 ML/MIN (>=60 (CALC)); GFR FOR AFR.AMER. > 60 ML/MIN (>=60 (CALC)); POTASSIUM 3.9 mmol/l (3.5-5.1); SGOT/AST 18 u/l (14-36); SODIUM 135 mmol/l (137-146); TOTAL PROTEIN 5.8 g/dL (6.3-8.2)
[2021-11-08] MEDS ORDERED: ZYLOPRIM100 MG PO (15:27)
[2021-11-08 15:46] LABS: URINE BILIRUBIN - DIPSTICK NEGATIVE (NEGATIVE); URINE BLOOD DIPSTICK MODERATE (NEGATIVE); URINE COLOR YELLOW; URINE GLUCOSE - DIPSTICK NEGATIVE (NEGATIVE); URINE KETONE NEGATIVE (NEGATIVE); URINE LEUK ESTERASE NEGATIVE (NEGATIVE); URINE PROTEIN - DIPSTICK TRACE mg/dL (NEG-TRACE); URINE UROBILINOGEN - DIPSTICK 0.2 E.U./dL (0.2)
[2021-11-08 15:47] LABS: URINE NITRITE - DIPSTICK NEGATIVE (Negative)
--- NOTE | 2021-11-08 15:52 | NUR ---
PT MEDICATED FOR PAIN, STATES RELIEF. VSS AND RESTING COMFORTABLY
--- NOTE | 2021-11-08 16:45 | NUR ---
REPORT CALLED TO ADVERTISEMENT COMPOSITOR AT THIS TIME. PT TO BE TRANSPORTED TO ROM 263
--- NOTE | 2021-11-08 17:06 | NUR ---
PATIENT ARRIVED TO THE MEDICAL/SURGICAL UNIT FROM THE ER WITH THE INITIAL C/O PAIN TO HER BILATERAL LOWER EXTREMITIES AT WHICH POINT IT WAS DISCOVERED TO BE PREDOMINATELY HER LEFT LEG. RADIOLOGY INITIATED IN THE ER AND PER ASHWIN SHANKAR MRS. FAUSTIN IS NEGATIVE FOR DVT. PATIENT STATES SHE WAS DIAGNOSED WITH GOUT BY HER PHYSISICAN ON 11/05/21 AND ALSO HAS ARTHITIS IN HER BILATERAL KNEES THAT SHE IS DUE TO GET INJECTIONS IN SOON. 20G IV IN PATIENTS RIGHT AC. BLOOD CULTURES AND URINALYSIS ARE PENDING AT THIS TIME. VITAL SIGNS STABLE, PATIENT ALERT AND ORIENTED AND FAMILIARIZED WITH HER ROOM, CALL LIGHT IN PLACE. NO QUESTIONS OR CONCERNS VERBALIZED TO THIS NURSE.
--- NOTE | 2021-11-08 19:26 | NUR ---
REPORT RECEIVED FROM Anmol LIRIANO RN
--- NOTE | 2021-11-08 21:02 | NUR ---
MEDICATIONS ADMINISTERED PER EMAR, SEE EMAR
--- NOTE | 2021-11-08 21:52 | NUR ---
PATIENT MEDICATED FOR PAIN AT THIS TIME. 12/01
[2021-11-09] VITALS (8 sets, daily range): BP systolic 103–124; BP diastolic 62–84
--- NOTE | 2021-11-09 00:45 | NUR ---
RESTING COMFORTABLY, FOOT ELEVATED FOR COMOFORT, CALL LIGHT AND BEDSIDE TABLE WITHIN REACH.
[2021-11-09 05:29] LABS: MEAN CELL VOLUME 94.7 fL CALC (80.0-100.0); MEAN CORPUSCULAR HGB 30.3 pG CALC (26.0-32.0); RED BLOOD COUNT 3.23 mill/uL (4.20-5.60); RED CELL DISTRI WIDTH 17.6 % (11.5-15.5)
[2021-11-09 05:42] LABS: ANION GAP 11 (6-22 (CALC)); BUN 13 mg/dL (7-17); BUN/CREATININE RATIO 14 (12-20 (CALC)); CARBON DIOXIDE 23 mmol/l (22-30); CHLORIDE 106 mmol/l (95-108); GFR 59 ML/MIN (>=60 (CALC)); GFR FOR AFR.AMER. > 60 ML/MIN (>=60 (CALC)); POTASSIUM 3.8 mmol/l (3.5-5.1); SODIUM 137 mmol/l (137-146)
[2021-11-09 05:49] LABS: MAGNESIUM 1.6 mg/dL (1.6-2.3)
[2021-11-09 05:56] LABS: HEMATOCRIT 30.6 % (37.0-47.0); HEMOGLOBIN 9.8 g/dl (12.0-16.0)
--- NOTE | 2021-11-09 06:01 | NUR ---
PATIENT MEDICATED FOR PAIN 04/02 AT THIS TIME.
--- NOTE | 2021-11-09 06:21 | NUR ---
CALL RECEIVED FROM [facility] REGARDING PATIENT HEMOGLOBIN SIGNIFICANT DROP.
--- NOTE | 2021-11-09 07:00 | NUR ---
RECIEVED REPORT FROM ASHWIN FISHER
--- NOTE | 2021-11-09 07:58 | NUR ---
PT RESTING IN SEMI FOWLERS POSITION. PT IS A/OX3. ASSESSMENT AND VITALS COMPLETED. REPSIRATIONS ARE EVEN AND UNLABORED ON ROOM AIR. LUNG SOUNDS CLEAR. HEART RHYTHM, NORMAL WITH TELE IN PLACE, ST PER ER MONITORING. BOWEL SOUNDS ACTIVE. #20G RAC FLUSHED, SITE PATENT. SKIN INTACT. SWELLING NOTED TO LEFT ANKLE, ELEVATED WITH PILLOW. PT C/O OF 4/10 PAIN, PT TO BE MEDICATED PER EMAR. PT DENIES OF ANY ADDITIONAL NEEDS. ALL SAFTEY PRECAUTIONS ARE IN PLACE WITH CALL LIGHT IN REACH.
--- NOTE | 2021-11-09 09:42 | NUR ---
DR MONROE AT BEDSIDE
--- NOTE | 2021-11-09 10:25 | NUR ---
PT TRANSPORTED TO CT VIA WHEELCHAIR ACCOMPAINED BY MARILUZ SILVA
--- NOTE | 2021-11-09 12:15 | NUR ---
PT RESTING IN SEMI FOWLERS POSITION. RESPIRATIONS ARE EVEN AND UNLABORED WITH NO DISTRESS ON ROOM AIR.TELE MONITORING IN PLACE. #20G EMS RAC REMAINS IN PLACE. HEAT PACK PROVIDED FOR HEADACHE. TYLENOL NOT AVAILABLE AT THIS TIME. MD TO BE INFORMED. PT DENIES OF ANY ADDITIONAL NEEDS AT THIS TIME. ALL SAFTEY PRECAUTIONS ARE IN PLACE WITH CALL LIGHT IN REACH.
--- NOTE | 2021-11-09 16:12 | NUR ---
PT MEDICATED WITH FOR HEADACHE. REPSIRATIONS REMAINS EVEN AND UNLABORED ON ROOM AIR. #20G EMS SITE CHANGED. NEW #22G RFA STARTED, SITE PATENT. PT DENIES OF ANY ADDITIONAL NEEDS AT THIS TIME. ALL SAFTEY PRECAUTIONS ARE IN PLACE WITH CALL LIGHT IN REACH.
--- NOTE | 2021-11-09 18:50 | NUR ---
REPORT RECEIVED FROM Nando LOCO LPN.
--- NOTE | 2021-11-09 21:00 | NUR ---
PATIENT UP TO USE THE RESTROOM AT THIS TIME. REQUESTING SOEMTHING STRONGER FOR SLEEP. DR NOTIFIED, ORDERS TO FOLLOW.
--- NOTE | 2021-11-10 00:15 | NUR ---
PT REQUESTING MILK AT THIS TIME, STATES ZOFRAN DID NOT HELP WITH HEARTBURN. MILK PROVIDED, CALL LIGHT AND BEDSIDE TABLE WITHIN REACH.
[2021-11-10 02:52] VITALS: BP 115/70
[2021-11-10 04:00] VITALS: BP 115/70
--- NOTE | 2021-11-10 04:00 | NUR ---
PATIENT RESTING COMOFRTABLY, DENIES ANY CURRENT NEEDS, CALL LIGHT AND BEDSIDE TABLE WITHIN REACH.
[2021-11-10 05:11] LABS: HEMATOCRIT 28.8 % (37.0-47.0); HEMOGLOBIN 9.3 g/dl (12.0-16.0); IMMATURE GRANULOCYTES 0.6 % (0.0-5.0); MEAN CELL VOLUME 93.2 fL CALC (80.0-100.0); MEAN CORPUSCULAR HGB 30.1 pG CALC (26.0-32.0); MEAN CORPUSCULAR HGB CONC 32.3 g/dL CAL (32.0-36.0); NEUT# 5.98 thou/uL (2.00-7.15); RED BLOOD COUNT 3.09 mill/uL (4.20-5.60); RED CELL DISTRI WIDTH 17.4 % (11.5-15.5)
[2021-11-10 05:52] LABS: ALKALINE PHOSPHATASE 109 u/l (38-126); ANION GAP 10 (6-22 (CALC)); BUN 18 mg/dL (7-17); BUN/CREATININE RATIO 16 (12-20 (CALC)); CARBON DIOXIDE 26 mmol/l (22-30); CHLORIDE 102 mmol/l (95-108); CREATININE 1.1 mg/dL (0.5-1.0); GFR 53 ML/MIN (>=60 (CALC)); GFR FOR AFR.AMER. > 60 ML/MIN (>=60 (CALC)); POTASSIUM 3.7 mmol/l (3.5-5.1); SODIUM 135 mmol/l (137-146); TOTAL PROTEIN 5.4 g/dL (6.3-8.2)
[2021-11-10 05:56] LABS: BILIRUBIN, TOTAL 0.3 mg/dL (0.0-1.4); SGOT/AST 51 u/l (14-36)
[2021-11-10 06:03] LABS: C-REACTIVE PROTEIN 17.9 mg/dL (0-0.9)
--- NOTE | 2021-11-10 07:00 | NUR ---
SHIFT CHANGE REPORT, PT PLEASANTLY AWAKE ALERT AND ORIENTED, C/O MILD ACHING PAIN @ 2/10 TO LEFT ANKLE, TELE MONITOR IN PLACE, NO OTHER CONCERNS AT THIS TIME, CALL HERNDON IN REACH AND BED LOCKED IN LOWEST POSITION.
[2021-11-10] MEDS ORDERED: MEDDOSEPAK PO (10:58)
[2021-11-10] MEDS ORDERED: NAPROXEN500 MG PO (10:58)
[2021-11-10 12:14] VITALS: BP 118/66
--- NOTE | 2021-11-10 13:02 | NUR ---
Discharge instructions given. Patient verbalizes understanding of same. Discharged in stable condition via Wheelchair to Home with family. All belongings sent with pt.
== END 2021-11-10 13:30 | disposition home or self-care (01) | DRG 556 ==
LOC: ED 14:20 → ED-I 15:30 → ED 15:58 → MS2 15:59
PROVIDERS: Family Medicine; ADMIT Hospitalist; ATTEND Hospitalist
DX: M25.572 Pain in left ankle and joints of left foot (principal); L03.116 Cellulitis of left lower limb; I42.8 Other cardiomyopathies; I50.9 Heart failure, unspecified; U09.9 Post COVID-19 condition, unspecified; I10 Essential (primary) hypertension; I48.91 Unspecified atrial fibrillation; D64.9 Anemia, unspecified; R51.9 Headache, unspecified; J44.9 Chronic obstructive pulmonary disease, unspecified; E66.9 Obesity, unspecified; F41.9 Anxiety disorder, unspecified; F32.A Depression, unspecified; K21.9 Gastro-esophageal reflux disease without esophagitis; Z86.711 Personal history of pulmonary embolism; Z79.01 Long term (current) use of anticoagulants; Z20.822 Contact with and (suspected) exposure to COVID-19
CPT/HCPCS: G0378

== ENCOUNTER 2021-11-25 14:34 | Observation (INO) | payer BC ==
[~2021-11-25] VITALS: Ht 157.5 cm; Wt 82.8 kg
[~2021-11-25 14:34] MED LIST changes: +NAPROXEN500 MG PO; +ZYLOPRIM100 MG PO
--- NOTE | 2021-11-25 14:34 | NUR ---
pt to room via stretcher with tachypnea, fever and feeling of sob.
[2021-11-25 14:40] VITALS: BP 151/97
[2021-11-25 14:56] VITALS: BP 162/110
[2021-11-25 15:31] LABS: IMMATURE GRANULOCYTES 0.6 % (0.0-5.0); MEAN CELL VOLUME 93.1 fL CALC (80.0-100.0); MEAN CORPUSCULAR HGB 29.5 pG CALC (26.0-32.0); MEAN CORPUSCULAR HGB CONC 31.7 g/dL CAL (32.0-36.0); NEUT# 19.56 thou/uL (2.00-7.15); RED BLOOD COUNT 3.9 mill/uL (4.20-5.60); RED CELL DISTRI WIDTH 18.2 % (11.5-15.5)
[2021-11-25 15:32] LABS: HEMATOCRIT 36.3 % (37.0-47.0); HEMOGLOBIN 11.5 g/dl (12.0-16.0)
[2021-11-25 15:46] LABS: ALKALINE PHOSPHATASE 104 u/l (38-126); ANION GAP 14 (6-22 (CALC)); BUN 14 mg/dL (7-17); BUN/CREATININE RATIO 12 (12-20 (CALC)); CARBON DIOXIDE 28 mmol/l (22-30); CHLORIDE 96 mmol/l (95-108); CREATININE 1.2 mg/dL (0.5-1.0); GFR 48 ML/MIN (>=60 (CALC)); GFR FOR AFR.AMER. 58 ML/MIN (>=60 (CALC)); LIPASE 29 u/l (23-300); POTASSIUM 3.9 mmol/l (3.5-5.1); SGOT/AST 65 u/l (14-36); SODIUM 134 mmol/l (137-146)
[2021-11-25 15:53] LABS: ALBUMIN 4.3 g/dL (3.2-5.0); BILIRUBIN, TOTAL 0.8 mg/dL (0.0-1.4); INTERNATIONAL NORMALIZED RATIO 1.1 RATIO (0.7-1.3); TOTAL PROTEIN 7.4 g/dL (6.3-8.2)
[2021-11-25 17:30] LABS: URINE BILIRUBIN - DIPSTICK NEGATIVE (NEGATIVE); URINE BLOOD DIPSTICK MODERATE (NEGATIVE); URINE COLOR YELLOW; URINE GLUCOSE - DIPSTICK NEGATIVE (NEGATIVE); URINE KETONE NEGATIVE (NEGATIVE); URINE LEUK ESTERASE NEGATIVE (NEGATIVE); URINE PH 6.5 (4.5-8.0); URINE PROTEIN - DIPSTICK TRACE mg/dL (NEG-TRACE); URINE SPECIFIC GRAVITY 1.015; URINE UROBILINOGEN - DIPSTICK 0.2 E.U./dL (0.2)
[2021-11-25 17:34] LABS: URINE NITRITE - DIPSTICK NEGATIVE (Negative)
[2021-11-25 17:43] LABS: URINE SQUAMOUS EPITHELIAL CELL FEW EPI/hpf (0-FEW); URINE WBC 0-2 WBC/hpf (0-5)
[2021-11-25 18:13] VITALS: BP 128/77
--- NOTE | 2021-11-25 18:15 | NUR ---
recieved report from er
--- NOTE | 2021-11-25 18:15 | NUR ---
PT ARRIVED TO [facility] ROOM 267 VIA PORTABLE . PT IS A/OX3. RESPIRATIONS EVEN AND UNLABORED ON ROOM AIR. PT ORIENTED TO ROOM AND CALL SYSTEM. IVF INFUSING PER ORDER. TELE MONITORING IN PLACE. PT DENIES OF ANY NEEDS. ALL SAFTEY PRECAUTIONS ARE IN PLACE WITH CALL LIGHT IN REACH
--- NOTE | 2021-11-25 18:25 | NUR ---
REPORT CALLED TO JEWEL CHRISTOPHER AT THIS TIME
[2021-11-25 19:00] VITALS: BP 124/72
[2021-11-25 19:58] VITALS: BP 113/72
--- NOTE | 2021-11-25 20:00 | NUR ---
REPORT GIVEN BY EMMY. PATIENT RESTING IN BED WITH C/O A HEADACHE, MEDICATED PER MD ORDERS. FALL AND SAFTEY PRECAUTIONS IN PLACE. IV INFUSING FLUIDS. S-TACH ON TELE. PATIENT INFORMED TO CALL WITH ANY QUESTIONS OR CONCERNS. PLAN OF CARE DISCUSSED.
--- NOTE | 2021-11-26 00:46 | NUR ---
MIDNIGHT ABX STARTED PER MD ORDERS. NO S/S OF DISTRESS NOTED. FALL AND SAFTEY PRECAUTIONS IN PLACE.
[2021-11-26 03:52] VITALS: BP 114/72
[2021-11-26 04:00] VITALS: BP 114/72
--- NOTE | 2021-11-26 04:45 | NUR ---
PATIENT RESTING WITH EYES CLOSED. RESP EVEN AND UNLABORED. NO S/S OF DISTRESS NOTED. FALL AND SAFTEY PRECATUIONS IN PLACE.
[2021-11-26 05:49] LABS: HEMATOCRIT 31.4 % (37.0-47.0); HEMOGLOBIN 10.2 g/dl (12.0-16.0); MEAN CELL VOLUME 93.2 fL CALC (80.0-100.0); MEAN CORPUSCULAR HGB 30.3 pG CALC (26.0-32.0); MEAN CORPUSCULAR HGB CONC 32.5 g/dL CAL (32.0-36.0); RED BLOOD COUNT 3.37 mill/uL (4.20-5.60); RED CELL DISTRI WIDTH 17.6 % (11.5-15.5)
[2021-11-26 05:53] LABS: ANION GAP 12 (6-22 (CALC)); BUN 15 mg/dL (7-17); BUN/CREATININE RATIO 14 (12-20 (CALC)); CARBON DIOXIDE 26 mmol/l (22-30); CHLORIDE 104 mmol/l (95-108); CREATININE 1.1 mg/dL (0.5-1.0); GFR 53 ML/MIN (>=60 (CALC)); GFR FOR AFR.AMER. > 60 ML/MIN (>=60 (CALC)); MAGNESIUM 1.4 mg/dL (1.6-2.3); POTASSIUM 3.6 mmol/l (3.5-5.1); SODIUM 138 mmol/l (137-146)
--- NOTE | 2021-11-26 07:00 | NUR ---
RECIEVED REPORT FROM ASHWIN SANCHES
[2021-11-26 07:56] VITALS: BP 120/84
--- NOTE | 2021-11-26 07:56 | NUR ---
PT RESTING IN SEMI FOWLERS POSITION. PT A/OX3. ASESSMENT COMPLETED. RESPIRATIONS EVEN AND UNLABORED ON ROOM AIR. WHEEZING PRSENT UPON ASCULTATION. HEART RHYTHM NORMAL WITH TELE IN PLACE. BOWEL SOUNDS ACTIVE. #20G RAC INFUSING WITH IVF PER ORDER, SITE PATENT. SKIN INTACT. 1+ EDEMA NOTED TO BLE. PT C/O OF 9/10 HEAD ACH, TYLENOL NO HELP. MD TO BE INFORMED. PT DENIES OF ANY ADDITIONAL NEEDS. ALL SAFTEY PRECAUTIONS ARE IN PLACE WITH CALL LIGHT IN REACH.
[2021-11-26] MEDS ORDERED: LASIX 40 MG TAB40 MG PO (09:32)
--- NOTE | 2021-11-26 09:35 | NUR ---
STANDING WEIGHT OBTAINED AT THIS TIME. RESULTING IN 82.2KG. DR MAGALLON AND ANRP AT BEDSIDE
[2021-11-26] MEDS ORDERED: HYDROCO/APAP1 TA9 PO (09:42)
[2021-11-26] MEDS ORDERED: ALLOPURINOL100 MG PO (09:44)
--- NOTE | 2021-11-26 12:30 | NUR ---
PT RESTING IN SEMI FOWLERS POSITION. RESPIRATIONS EVEN AND UNLABORED. TELE N PLACE. PT MEDICATED WITH TYLENOL FOR 8 HEADACHE. PT DENIES OF ANY ADDITIONAL NEEDS AT THIS TIME. ALL SAFTEY PRECAUTIONS IN PLACE WITH CALL LIGHT IN REACH.
[2021-11-26 15:31] VITALS: BP 101/64
--- NOTE | 2021-11-26 15:45 | NUR ---
PT RESTING IN SEMI FOWLERS POSITION. RESPIRATIONS EVEN AND UNLABORED ON ROOM AIR. TELE MONITORING IN PLACE. PT C/O OF HEAD ACHE, MEDICATIONS AVAILABLE NOT HELPING. MD AWARE. PT DENIES OF ANY ADDITIONAL NEEDS. ALL SAFTEY PRECAUTIONS IN PLACE WITH CALL LIGHT IN REACH
[2021-11-26 19:12] VITALS: BP 101/69
--- NOTE | 2021-11-26 20:00 | NUR ---
REPORT GIVEN BY EMMY. PATIENT RESTING IN BED WATCHING TV. RESP EVEN AND UNLABORED. GENERAL TRACE EDEMA PRESENT. FALL AND SAFTEY PRECAUTIONS IN PLACE. IV INFUSING FULIDS PER MD ORDERS. NO S/S OF DISTRESS NOTED. PLAN OF CARE DISCUSSED. PATIENT INFORMED TO CALL WITH ANY QUESTIONS OR CONCERNS.
--- NOTE | 2021-11-27 | NUR ---
PATIENT RESTING WITH EYES CLOSED. RESP EVEN AND UNLABORED. NO S/S OF DISTRESS NOTED. FALL AND SAFTEY PRECATUIONS IN PLACE.
[2021-11-27 00:07] VITALS: BP 98/67
[2021-11-27 04:03] VITALS: BP 154/97
--- NOTE | 2021-11-27 04:08 | NUR ---
SHUTTLECOCK ASSEMBLER AT BEDSIDE DRAWING MORNING LABS
[2021-11-27 05:48] LABS: HEMATOCRIT 32.3 % (37.0-47.0); HEMOGLOBIN 10.2 g/dl (12.0-16.0); MEAN CELL VOLUME 93.9 fL CALC (80.0-100.0); MEAN CORPUSCULAR HGB 29.7 pG CALC (26.0-32.0); MEAN CORPUSCULAR HGB CONC 31.6 g/dL CAL (32.0-36.0); RED BLOOD COUNT 3.44 mill/uL (4.20-5.60); RED CELL DISTRI WIDTH 18.3 % (11.5-15.5)
[2021-11-27 06:12] LABS: ANION GAP 12 (6-22 (CALC)); BUN 19 mg/dL (7-17); BUN/CREATININE RATIO 17 (12-20 (CALC)); CARBON DIOXIDE 25 mmol/l (22-30); CHLORIDE 106 mmol/l (95-108); CREATININE 1.1 mg/dL (0.5-1.0); GFR 53 ML/MIN (>=60 (CALC)); GFR FOR AFR.AMER. > 60 ML/MIN (>=60 (CALC)); POTASSIUM 3.7 mmol/l (3.5-5.1); SODIUM 140 mmol/l (137-146)
[2021-11-27 06:13] LABS: MAGNESIUM 2.3 mg/dL (1.6-2.3)
[2021-11-27 08:01] VITALS: BP 146/90
--- NOTE | 2021-11-27 08:06 | NUR ---
SHIFT CHANGE REPORT, PT AWAKE ALERT AND ORIENTED NO C/O DISCOMFORT AT THIS TIME, IVF 0.9 NS INFUSING TO SITE IN RAC, TELE MONITOR IN PLACE, CALL HERNDON IN REACH AND BED LOCKED IN LOWEST POSITION.
[2021-11-27] MEDS ORDERED: IPRATROPIU0.5 MG/3 M NEB (08:58)
[2021-11-27] MEDS ORDERED: PREDNISONE10 MG PO (08:59)
[2021-11-27] MEDS ORDERED: ADVAIR DISK1 IN (08:59)
[2021-11-27] MEDS ORDERED: VIBRAMYCIN100 M2 PO (09:00)
[2021-11-27] MEDS ORDERED: ROBITUSSIN AC10 ML PO (09:01)
[2021-11-27 10:52] VITALS: BP 139/86
--- NOTE | 2021-11-27 12:00 | NUR ---
NO NEW COMPLAINS, STABLE CONDITION.
[2021-11-27 15:16] VITALS: BP 151/95
--- NOTE | 2021-11-27 15:30 | NUR ---
Discharge instructions given. Patient verbalizes understanding of same. Discharged in fair condition via Wheelchair to Home with family. All belongings sent with pt.
== END 2021-11-27 15:30 | disposition home or self-care (01) | DRG 194 ==
LOC: ED 14:34 → ED-I 17:10 → ED 17:28 → MS2 17:29
PROVIDERS: Family Medicine; ADMIT Internal Medicine; ATTEND Internal Medicine
DX: J18.9 Pneumonia, unspecified organism (principal); J45.901 Unspecified asthma with (acute) exacerbation; I42.8 Other cardiomyopathies; J44.0 Chronic obstructive pulmonary disease with (acute) lower respiratory infection; E83.42 Hypomagnesemia; I48.91 Unspecified atrial fibrillation; I50.9 Heart failure, unspecified; K21.9 Gastro-esophageal reflux disease without esophagitis; F41.9 Anxiety disorder, unspecified; F32.A Depression, unspecified; M10.9 Gout, unspecified; T48.6X6A Underdosing of antiasthmatics, initial encounter; Z91.128 Patient's intentional underdosing of medication regimen for other reason; Z86.16 Personal history of COVID-19; Z79.01 Long term (current) use of anticoagulants; Z86.711 Personal history of pulmonary embolism; Z20.822 Contact with and (suspected) exposure to COVID-19
CPT/HCPCS: G0378; J2060; J3475; Q9967

== ENCOUNTER 2022-04-07 18:14 | Observation (INO) | payer BC ==
[~2022-04-07] VITALS: Ht 152.4 cm; Wt 80.0 kg
[~2022-04-07 18:14] MED LIST changes: +ALLOPURINOL100 MG PO; +IPRATROPIU0.5 MG/3 M NEB; +LASIX 40 MG TAB40 MG PO; +ROBITUSSIN AC10 ML PO; +VIBRAMYCIN100 M2 PO
[2022-04-07 19:12] LABS: HEMATOCRIT 35.9 % (37.0-47.0); HEMOGLOBIN 11.5 g/dl (12.0-16.0); IMMATURE GRANULOCYTES 0.7 % (0.0-5.0); MEAN CORPUSCULAR HGB 30.1 pG CALC (26.0-32.0); NEUT# 3.22 thou/uL (2.00-7.15); RED BLOOD COUNT 3.82 mill/uL (4.20-5.60); RED CELL DISTRI WIDTH 17.4 % (11.5-15.5)
[2022-04-07 19:26] LABS: ANION GAP 14 (6-22 (CALC)); BUN 9 mg/dL (7-17); BUN/CREATININE RATIO 9 (12-20 (CALC)); CARBON DIOXIDE 22 mmol/l (22-30); CHLORIDE 109 mmol/l (95-108); CREATININE 1.1 mg/dL (0.5-1.0); GFR FOR AFR.AMER. > 60 ML/MIN (>=60 (CALC)); GFR OTHER RACES 53 ML/MIN (>=60 (CALC)); POTASSIUM 4.3 mmol/l (3.5-5.1); SGOT/AST 53 u/l (14-36); SODIUM 141 mmol/l (137-146); TOTAL PROTEIN 6.9 g/dL (6.3-8.2)
[2022-04-07 19:30] LABS: ALKALINE PHOSPHATASE 172 u/l (38-126); BILIRUBIN, TOTAL 0.3 mg/dL (0.0-1.4)
[2022-04-07 22:13] VITALS: BP 164/100
[2022-04-08] VITALS (8 sets, daily range): BP systolic 111–151; BP diastolic 62–97
[2022-04-08 04:59] LABS: HEMATOCRIT 33.3 % (37.0-47.0); HEMOGLOBIN 10.8 g/dl (12.0-16.0); IMMATURE GRANULOCYTES 0.8 % (0.0-5.0); MEAN CELL VOLUME 93.3 fL CALC (80.0-100.0); MEAN CORPUSCULAR HGB 30.3 pG CALC (26.0-32.0); MEAN CORPUSCULAR HGB CONC 32.4 g/dL CAL (32.0-36.0); NEUT# 1.77 thou/uL (2.00-7.15); RED BLOOD COUNT 3.57 mill/uL (4.20-5.60); RED CELL DISTRI WIDTH 17.5 % (11.5-15.5)
[2022-04-08 05:17] LABS: ALBUMIN 3.2 g/dL (3.2-5.0); ALKALINE PHOSPHATASE 149 u/l (38-126); ANION GAP 12 (6-22 (CALC)); BILIRUBIN, TOTAL 0.2 mg/dL (0.0-1.4); BUN 7 mg/dL (7-17); BUN/CREATININE RATIO 8 (12-20 (CALC)); C-REACTIVE PROTEIN 3.2 mg/dL (0-0.9); CARBON DIOXIDE 22 mmol/l (22-30); CHLORIDE 112 mmol/l (95-108); GFR FOR AFR.AMER. > 60 ML/MIN (>=60 (CALC)); GFR OTHER RACES 59 ML/MIN (>=60 (CALC)); POTASSIUM 4.3 mmol/l (3.5-5.1); SGOT/AST 39 u/l (14-36); SODIUM 141 mmol/l (137-146); TOTAL PROTEIN 5.7 g/dL (6.3-8.2)
[2022-04-08 12:08] LABS: URINE BILIRUBIN - DIPSTICK NEGATIVE (NEGATIVE); URINE BLOOD DIPSTICK TRACE-LYSED (NEGATIVE); URINE CLARITY CLEAR; URINE COLOR YELLOW; URINE GLUCOSE - DIPSTICK NEGATIVE (NEGATIVE); URINE KETONE NEGATIVE (NEGATIVE); URINE LEUK ESTERASE NEGATIVE (Negative); URINE NITRITE - DIPSTICK NEGATIVE (Negative); URINE PH 5.5 (4.5-8.0); URINE PROTEIN - DIPSTICK NEGATIVE (NEG-TRACE); URINE UROBILINOGEN - DIPSTICK 0.2 E.U./dL (0.2)
[2022-04-09] VITALS: BP 144/95
[2022-04-09 00:26] VITALS: BP 144/95
[2022-04-09 04:14] VITALS: BP 127/90
[2022-04-09 05:21] LABS: HEMATOCRIT 33.3 % (37.0-47.0); HEMOGLOBIN 10.8 g/dl (12.0-16.0); IMMATURE GRANULOCYTES 0.9 % (0.0-5.0); MEAN CELL VOLUME 93.8 fL CALC (80.0-100.0); MEAN CORPUSCULAR HGB 30.4 pG CALC (26.0-32.0); MEAN CORPUSCULAR HGB CONC 32.4 g/dL CAL (32.0-36.0); NEUT# 5.38 thou/uL (2.00-7.15); RED BLOOD COUNT 3.55 mill/uL (4.20-5.60); RED CELL DISTRI WIDTH 17.4 % (11.5-15.5)
[2022-04-09 05:50] LABS: ALBUMIN 3.4 g/dL (3.2-5.0); BILIRUBIN, TOTAL 0.2 mg/dL (0.0-1.4); CREATININE 1.3 mg/dL (0.5-1.0); POTASSIUM 4.2 mmol/l (3.5-5.1); TOTAL PROTEIN 5.9 g/dL (6.3-8.2)
[2022-04-09 05:54] LABS: MAGNESIUM 1.4 mg/dL (1.6-2.3)
[2022-04-09 06:19] VITALS: BP 130/87
[2022-04-09 10:22] VITALS: BP 134/95
[2022-04-09] MEDS ORDERED: IPRATROPIU0.5 MG/3 M NEB (12:02)
[2022-04-09] MEDS ORDERED: PREDNISONE10 MG PO (12:05)
[2022-04-09] MEDS ORDERED: VIBRAMYCIN100 M2 PO (12:06)
[2022-04-09] MEDS ORDERED: ROBITUSSIN AC10 ML PO (12:07)
== END 2022-04-09 14:27 | disposition home or self-care (01) | DRG 177 ==
LOC: ED 18:52 → MS2 20:09
PROVIDERS: Family Medicine; Nurse Practitioner; ADMIT Internal Medicine; ATTEND Internal Medicine
DX: U07.1 COVID-19 (principal); J12.82 Pneumonia due to coronavirus disease 2019; I11.0 Hypertensive heart disease with heart failure; I50.9 Heart failure, unspecified; I48.91 Unspecified atrial fibrillation; J45.909 Unspecified asthma, uncomplicated; F41.9 Anxiety disorder, unspecified; F32.A Depression, unspecified; M10.9 Gout, unspecified; Z86.16 Personal history of COVID-19; Z86.711 Personal history of pulmonary embolism; Z79.01 Long term (current) use of anticoagulants
CPT/HCPCS: G0378; J3475

== ENCOUNTER 2022-08-28 10:00 | Observation (INO) | payer BC ==
[~2022-08-28] VITALS: Ht 152.4 cm; Wt 82.0 kg
[2022-08-28] VITALS (11 sets, daily range): BP systolic 118–143; BP diastolic 72–93
[2022-08-28 10:52] LABS: BASO% 0.5 % (0-3); EOS% 4.3 % (0-8); HEMATOCRIT 29.9 % (37.0-47.0); IMMATURE GRANULOCYTES 0.3 % (0.0-5.0); LYMPH% 22.7 % (15-41); MEAN CELL VOLUME 96.8 fL CALC (80.0-100.0); MEAN CORPUSCULAR HGB 32.4 pG CALC (26.0-32.0); MEAN CORPUSCULAR HGB CONC 33.4 g/dL CAL (32.0-36.0); MONO% 9.9 % (2-13); NEUT# 2.33 thou/uL (2.00-7.15); NEUT% 62.3 % (42-76); RED BLOOD COUNT 3.09 mill/uL (4.20-5.60); RED CELL DISTRI WIDTH 19.3 % (11.5-15.5)
[2022-08-28 11:12] LABS: PROTHROMBIN TIME 9.9 SECONDS (9.0-12.5)
[2022-08-28 11:24] LABS: ALKALINE PHOSPHATASE 137 u/l (38-126); ANION GAP 13 (6-22 (CALC)); BUN 17 mg/dL (7-17); BUN/CREATININE RATIO 12 (12-20 (CALC)); CARBON DIOXIDE 27 mmol/l (22-30); CHLORIDE 104 mmol/l (95-108); CREATININE 1.4 mg/dL (0.5-1.0); GFR FOR AFR.AMER. 48 ML/MIN (>=60 (CALC)); GFR OTHER RACES 40 ML/MIN (>=60 (CALC)); SGOT/AST 26 u/l (14-36); SODIUM 139 mmol/l (137-146)
[2022-08-28 11:27] LABS: ALBUMIN 4.2 g/dL (3.2-5.0); BILIRUBIN, TOTAL 0.5 mg/dL (0.0-1.4); TOTAL PROTEIN 7.1 g/dL (6.3-8.2)
[2022-08-28 11:31] LABS: ETHYL ALCOHOL 0 mg/dl (0-30)
[2022-08-28 11:55] LABS: URINE BILIRUBIN - DIPSTICK NEGATIVE (NEGATIVE); URINE BLOOD DIPSTICK TRACE-INTACT (NEGATIVE); URINE COLOR YELLOW; URINE GLUCOSE - DIPSTICK NEGATIVE (NEGATIVE); URINE KETONE NEGATIVE (NEGATIVE); URINE LEUK ESTERASE NEGATIVE (NEGATIVE); URINE PH 6.5 (4.5-8.0); URINE PROTEIN - DIPSTICK NEGATIVE (NEG-TRACE); URINE UROBILINOGEN - DIPSTICK 0.2 E.U./dL (0.2)
[2022-08-28 11:57] LABS: URINE NITRITE - DIPSTICK NEGATIVE (Negative)
[2022-08-29 00:08] VITALS: BP 107/70
[2022-08-29 04:03] VITALS: BP 141/88
[2022-08-29 06:08] LABS: BASO% 0.5 % (0-3); EOS% 3.5 % (0-8); HEMATOCRIT 27.6 % (37.0-47.0); HEMOGLOBIN 9.1 g/dl (12.0-16.0); IMMATURE GRANULOCYTES 0.3 % (0.0-5.0); LYMPH% 42.7 % (15-41); MEAN CELL VOLUME 98.9 fL CALC (80.0-100.0); MEAN CORPUSCULAR HGB 32.6 pG CALC (26.0-32.0); MONO% 9.7 % (2-13); NEUT# 1.6 thou/uL (2.00-7.15); NEUT% 43.3 % (42-76); RED BLOOD COUNT 2.79 mill/uL (4.20-5.60); RED CELL DISTRI WIDTH 19.4 % (11.5-15.5)
[2022-08-29 06:17] LABS: ALBUMIN 3.5 g/dL (3.2-5.0); BILIRUBIN, TOTAL 0.3 mg/dL (0.0-1.4); CREATININE 1.3 mg/dL (0.5-1.0); TOTAL PROTEIN 5.9 g/dL (6.3-8.2)
[2022-08-29 06:31] LABS: POTASSIUM 3.9 mmol/l (3.5-5.1)
[2022-08-29 06:48] VITALS: BP 126/75
[2022-08-29 11:10] VITALS: BP 137/81
[2022-08-29] MEDS ORDERED: KEPPRA500 M2 PO (13:51)
[2022-08-29 14:43] VITALS: BP 131/78
== END 2022-08-29 15:33 | disposition home or self-care (01) | DRG 72 ==
LOC: ED 10:00 → ED-I 12:00 → ED 12:30 → MS2 12:31
PROVIDERS: Family Medicine; Nurse Practitioner Family; ADMIT Internal Medicine; ATTEND Internal Medicine
DX: G93.40 Encephalopathy, unspecified (principal); I11.0 Hypertensive heart disease with heart failure; I50.9 Heart failure, unspecified; I48.91 Unspecified atrial fibrillation; J44.9 Chronic obstructive pulmonary disease, unspecified; F41.9 Anxiety disorder, unspecified; F32.A Depression, unspecified; E66.9 Obesity, unspecified; Z86.16 Personal history of COVID-19; Z91.041 Radiographic dye allergy status; Z86.711 Personal history of pulmonary embolism; Z87.891 Personal history of nicotine dependence; Z82.0 Family history of epilepsy and other diseases of the nervous system; Z96.652 Presence of left artificial knee joint
CPT/HCPCS: G0378

== ENCOUNTER 2023-01-16 17:58 | Inpatient (IN) | payer BC ==
[~2023-01-16] VITALS: Ht 152.4 cm; Wt 88.6 kg
[2023-01-16] VITALS (17 sets, daily range): BP systolic 137–192; BP diastolic 86–144
[~2023-01-16 17:58] MED LIST changes: +KEPPRA500 M2 PO; -QUETIAPINE FUMA50 M1 PO; +SEROQUEL300 MG PO
[2023-01-16 18:33] LABS: BASO% 0.2 % (0-3); HEMATOCRIT 30.7 % (37.0-47.0); HEMOGLOBIN 8.9 g/dl (12.0-16.0); IMMATURE GRANULOCYTES 0.4 % (0.0-5.0); LYMPH% 8.6 % (15-41); MEAN CELL VOLUME 88.5 fL CALC (80.0-100.0); MEAN CORPUSCULAR HGB 25.6 pG CALC (26.0-32.0); MONO% 4.2 % (2-13); NEUT# 7.01 thou/uL (2.00-7.15); NEUT% 86.6 % (42-76); RED BLOOD COUNT 3.47 mill/uL (4.20-5.60); RED CELL DISTRI WIDTH 20.9 % (11.5-15.5)
[2023-01-16 18:46] LABS: ALKALINE PHOSPHATASE 109 u/l (38-126); BILIRUBIN, TOTAL 0.4 mg/dL (0.02-1.3); BUN 13 mg/dL (7-17); BUN/CREATININE RATIO 14 (12-20 (CALC)); CHLORIDE 112 mmol/l (95-108); CREATININE 0.9 mg/dL (0.5-1.0); GFR FOR AFR.AMER. > 60 ML/MIN (>=60 (CALC)); GFR OTHER RACES > 60 ML/MIN (>=60 (CALC)); POTASSIUM 4.4 mmol/l (3.5-5.1); SODIUM 142 mmol/l (137-146)
[2023-01-16 18:52] LABS: ALBUMIN 4.4 g/dL (3.2-5.0); ANION GAP 15 (6-22 (CALC)); CARBON DIOXIDE 19 mmol/l (22-30); SGOT/AST 62 u/l (14-36); TOTAL PROTEIN 7.1 g/dL (6.3-8.2)
[2023-01-16 19:54] LABS: URINE BILIRUBIN - DIPSTICK NEGATIVE (NEGATIVE); URINE BLOOD DIPSTICK TRACE-INTACT (NEGATIVE); URINE COLOR YELLOW; URINE GLUCOSE - DIPSTICK NEGATIVE (NEGATIVE); URINE KETONE NEGATIVE (NEGATIVE); URINE LEUK ESTERASE NEGATIVE (NEGATIVE); URINE PROTEIN - DIPSTICK NEGATIVE (NEG-TRACE); URINE SPECIFIC GRAVITY 1.015; URINE UROBILINOGEN - DIPSTICK 0.2 E.U./dL (0.2)
[2023-01-16 19:55] LABS: URINE NITRITE - DIPSTICK NEGATIVE (Negative)
[2023-01-17] VITALS (67 sets, daily range): BP systolic 100–161; BP diastolic 60–112
[2023-01-17 04:56] LABS: BASO% 0.2 % (0-3); HEMATOCRIT 27.9 % (37.0-47.0); HEMOGLOBIN 8.2 g/dl (12.0-16.0); IMMATURE GRANULOCYTES 0.2 % (0.0-5.0); LYMPH% 7.2 % (15-41); MEAN CELL VOLUME 87.2 fL CALC (80.0-100.0); MEAN CORPUSCULAR HGB 25.6 pG CALC (26.0-32.0); MEAN CORPUSCULAR HGB CONC 29.4 g/dL CAL (32.0-36.0); MONO% 1.7 % (2-13); NEUT# 5.26 thou/uL (2.00-7.15); NEUT% 90.7 % (42-76); RED BLOOD COUNT 3.2 mill/uL (4.20-5.60); RED CELL DISTRI WIDTH 20.8 % (11.5-15.5)
[2023-01-17 05:20] LABS: ALBUMIN 3.9 g/dL (3.2-5.0); ALKALINE PHOSPHATASE 106 u/l (38-126); ANION GAP 8 (6-22 (CALC)); BILIRUBIN, TOTAL 0.4 mg/dL (0.02-1.3); BUN 16 mg/dL (7-17); BUN/CREATININE RATIO 18 (12-20 (CALC)); CHLORIDE 105 mmol/l (95-108); CREATININE 0.9 mg/dL (0.5-1.0); GFR FOR AFR.AMER. > 60 ML/MIN (>=60 (CALC)); GFR OTHER RACES > 60 ML/MIN (>=60 (CALC)); MAGNESIUM 1.5 mg/dL (1.6-2.3); POTASSIUM 4.1 mmol/l (3.5-5.1); SGOT/AST 35 u/l (14-36); SODIUM 138 mmol/l (137-146); TOTAL PROTEIN 6.3 g/dL (6.3-8.2)
[2023-01-17 05:21] LABS: CARBON DIOXIDE 29 mmol/l (22-30)
[2023-01-18] VITALS (19 sets, daily range): BP systolic 88–154; BP diastolic 57–98
[2023-01-18 05:14] LABS: BUN 22 mg/dL (7-17); BUN/CREATININE RATIO 20 (12-20 (CALC)); CARBON DIOXIDE 31 mmol/l (22-30); CHLORIDE 100 mmol/l (95-108); CREATININE 1.1 mg/dL (0.5-1.0); GFR FOR AFR.AMER. > 60 ML/MIN (>=60 (CALC)); GFR OTHER RACES 53 ML/MIN (>=60 (CALC)); MAGNESIUM 1.8 mg/dL (1.6-2.3); SODIUM 138 mmol/l (137-146)
[2023-01-18 05:15] LABS: ANION GAP 10 (6-22 (CALC)); POTASSIUM 3.1 mmol/l (3.5-5.1)
[2023-01-18 05:18] LABS: BASO% 0.1 % (0-3); EOS% 0.1 % (0-8); HEMATOCRIT 29.9 % (37.0-47.0); HEMOGLOBIN 9.1 g/dl (12.0-16.0); IMMATURE GRANULOCYTES 0.6 % (0.0-5.0); LYMPH% 25.8 % (15-41); MEAN CELL VOLUME 85.9 fL CALC (80.0-100.0); MEAN CORPUSCULAR HGB 26.1 pG CALC (26.0-32.0); MEAN CORPUSCULAR HGB CONC 30.4 g/dL CAL (32.0-36.0); MONO% 6.2 % (2-13); NEUT# 5.28 thou/uL (2.00-7.15); NEUT% 67.2 % (42-76); RED BLOOD COUNT 3.48 mill/uL (4.20-5.60); RED CELL DISTRI WIDTH 20.7 % (11.5-15.5)
[2023-01-18] MEDS ORDERED: VENTOLIN HFA108 MCG IN (09:25)
[2023-01-18] MEDS ORDERED: TRELEGY ELLIPTA1 AER IN (09:27)
[2023-01-18] MEDS ORDERED: IPRATROPIU0.5 MG/3 M IN (09:28)
[2023-01-19 04:02] VITALS: BP 109/65
[2023-01-19 04:18] VITALS: BP 109/65
[2023-01-19 05:08] LABS: BASO% 0.3 % (0-3); EOS% 0.6 % (0-8); HEMATOCRIT 31.7 % (37.0-47.0); HEMOGLOBIN 9.3 g/dl (12.0-16.0); IMMATURE GRANULOCYTES 0.4 % (0.0-5.0); LYMPH% 24.4 % (15-41); MEAN CELL VOLUME 87.3 fL CALC (80.0-100.0); MEAN CORPUSCULAR HGB 25.6 pG CALC (26.0-32.0); MEAN CORPUSCULAR HGB CONC 29.3 g/dL CAL (32.0-36.0); MONO% 10.4 % (2-13); NEUT# 4.43 thou/uL (2.00-7.15); NEUT% 63.9 % (42-76); RED BLOOD COUNT 3.63 mill/uL (4.20-5.60); RED CELL DISTRI WIDTH 20.8 % (11.5-15.5)
[2023-01-19 05:16] LABS: ANION GAP 10 (6-22 (CALC)); BUN 23 mg/dL (7-17); BUN/CREATININE RATIO 23 (12-20 (CALC)); CARBON DIOXIDE 34 mmol/l (22-30); CHLORIDE 98 mmol/l (95-108); GFR FOR AFR.AMER. > 60 ML/MIN (>=60 (CALC)); GFR OTHER RACES 59 ML/MIN (>=60 (CALC)); MAGNESIUM 1.7 mg/dL (1.6-2.3); POTASSIUM 3.7 mmol/l (3.5-5.1); SODIUM 138 mmol/l (137-146)
[2023-01-19 07:28] VITALS: BP 121/72
[2023-01-19 08:22] VITALS: BP 121/72
[2023-01-19] MEDS ORDERED: LOSARTAN POTASS50 MG PO (09:16)
[2023-01-19] MEDS ORDERED: PREDNISONE20 MG PO (09:25)
[2023-01-19] MEDS ORDERED: KLOR-CON M2020 MEQ PO (10:20)
== END 2023-01-19 12:40 | disposition home or self-care (01) | DRG 291 ==
LOC: ED 17:58 → ED-I 19:20 → ED 19:26 → ICU 19:27 → MS2 01-17 12:08 → ICU 01-17 12:08 → MS2 01-18 16:51
PROVIDERS: Family Medicine; ADMIT Internal Medicine; ATTEND Internal Medicine
PROC: 5A09357 Assistance with Respiratory Ventilation, Less than 24 Consecutive Hours, Continuous Positive Airway Pressure (ICD-10-PCS; principal; 2023-01-16)
DX: I11.0 Hypertensive heart disease with heart failure (principal); J96.21 Acute and chronic respiratory failure with hypoxia; I50.9 Heart failure, unspecified; E83.42 Hypomagnesemia; I48.91 Unspecified atrial fibrillation; J44.9 Chronic obstructive pulmonary disease, unspecified; F41.9 Anxiety disorder, unspecified; F32.A Depression, unspecified; E66.01 Morbid (severe) obesity due to excess calories; K21.9 Gastro-esophageal reflux disease without esophagitis; G47.00 Insomnia, unspecified; R56.9 Unspecified convulsions; T50.2X6A Underdosing of carbonic-anhydrase inhibitors, benzothiadiazides and other diuretics, initial encounter; T44.5X6A Underdosing of predominantly beta-adrenoreceptor agonists, initial encounter; Z91.128 Patient's intentional underdosing of medication regimen for other reason; Z86.16 Personal history of COVID-19; Z86.711 Personal history of pulmonary embolism; Z87.891 Personal history of nicotine dependence; Z20.822 Contact with and (suspected) exposure to COVID-19
CPT/HCPCS: J3475

== ENCOUNTER 2023-01-26 09:16 | Observation (INO) | payer BC ==
[~2023-01-26] VITALS: Ht 152.4 cm; Wt 89.4 kg
[2023-01-26] VITALS (20 sets, daily range): BP systolic 86–131; BP diastolic 41–82
[~2023-01-26 09:16] MED LIST changes: +LOSARTAN POTASS50 MG PO; +PREDNISONE20 MG PO; +TRELEGY ELLIPTA1 AER IN; +VENTOLIN HFA108 MCG IN
--- NOTE | 2023-01-26 10:01 | NUR ---
VERBAL ORDER GIVEN TO ALATORRE I/V FLUIDS TO 500ML/HR.
[2023-01-26 10:19] LABS: BASO% 0.3 % (0-3); EOS% 0.1 % (0-8); HEMATOCRIT 34.6 % (37.0-47.0); LYMPH% 13.4 % (15-41); MEAN CELL VOLUME 86.5 fL CALC (80.0-100.0); MEAN CORPUSCULAR HGB CONC 28.9 g/dL CAL (32.0-36.0); NEUT# 6.01 thou/uL (2.00-7.15); NEUT% 77.2 % (42-76); RED CELL DISTRI WIDTH 19.3 % (11.5-15.5)
[2023-01-26] MEDS ORDERED: LOSARTAN POTASS50 MG PO (10:23)
[2023-01-26 10:36] LABS: ALBUMIN 4.2 g/dL (3.2-5.0); TOTAL PROTEIN 6.9 g/dL (6.3-8.2)
[2023-01-26 10:42] LABS: CREATININE 2.6 mg/dL (0.5-1.0); POTASSIUM 4.7 mmol/l (3.5-5.1)
--- NOTE | 2023-01-26 11:13 | NUR ---
Reassessment of patient completed. No distress noted. UP TO BR FOR BM AND URINATED. NOW C/O NAUSEA PER NURSE TECH YL. PER PT NAUSEA BAD WHILE UP TO BR NOW IN BED S/S SUBSIDED.
--- NOTE | 2023-01-26 11:16 | NUR ---
Reassessment of patient completed. No distress noted. PT ASSISTED TO BR BY NURSE TECH YL FOR BM/URINATE. C/O NAUSEA WHILE UP TO BR, SUBSIDED SNICE BACK IN BED.
--- NOTE | 2023-01-26 12:05 | NUR ---
Reassessment of patient completed. No distress noted. ASSISTED PT TO BR.
--- NOTE | 2023-01-26 14:00 | NUR ---
Reassessment of patient completed. No distress noted.
--- NOTE | 2023-01-26 15:10 | NUR ---
REPORT CALLED TO [facility] / [facility] NURSE, PT TAKEN VIA W/C WITH ALL BELONGINGS BY NURSE TECH YL. PT VSS AND NO COMPLAINTS AT THIS TIME.
--- NOTE | 2023-01-26 15:23 | NUR ---
PT ARRIVED VIA WC WITH HOGSHEAD INSPECTOR. PT BALE TO AMBULATE VIA STANDY BY ASSIST TO BED. ORIENTATED PT TO ROOM AND CALL HER[facility] SYSTEM. TELE MONITOR I NPALCE, CONTIOUS MONITORING PER ED. ADMISSION ASSESSMENT COMPLETED. FALL/SAFTEY PRECAUITON IN PLACE. CALL LIGHT WITHIN REACH
--- NOTE | 2023-01-26 18:18 | NUR ---
PT RESTING IN BED AT THIS TIME. STATES NO NEEDS AT THIS TIME. FALL/SAFTEY PRECAUTION IN PLACE. CALL LIGHT WIHTIN REACH
--- NOTE | 2023-01-26 20:00 | NUR ---
RECEIVED REPORT FROM NURSE SOHAN, PATIENT RESTING IN BED, WATCHING TV, PATIENT ALERT ORIENTED C/O NAUSEA WILL MEDICATE, PATIENT NS @ 50 INFUSING WELL ON LAC G 20, HOOKED ON TLEMETRY, ACTIVE BOWEL SOUNDS LBM 6/5, DENIES PAIN AT THIS TIME, WHEEZING NOTED ON LEFT LUNG FIELD PATIENT REQUESTED BREATHING TREATMENT, RT AWARE, CALL LIGHT IN REACH.
[2023-01-27] VITALS (7 sets, daily range): BP systolic 91–120; BP diastolic 46–76
--- NOTE | 2023-01-27 | NUR ---
IV INFILTRATED REMOVED AT THIS TIME, PATIENT RESTING WITH EYES CLOSED, BREATHING EVEN UNALBORED CALL LIGHT IN REACH.
--- NOTE | 2023-01-27 05:15 | NUR ---
PATIENT IN BED, NOT IN DISTRESS, BREATHING EVEN UNLABORED CALL LIGHT IN REACH.
[2023-01-27 06:24] LABS: ALBUMIN 3.5 g/dL (3.2-5.0); POTASSIUM 3.9 mmol/l (3.5-5.1); TOTAL PROTEIN 5.6 g/dL (6.3-8.2)
[2023-01-27 06:29] LABS: BASO% 0.2 % (0-3); EOS% 0.2 % (0-8); HEMOGLOBIN 8.7 g/dl (12.0-16.0); IMMATURE GRANULOCYTES 0.8 % (0.0-5.0); LYMPH% 21.4 % (15-41); MEAN CORPUSCULAR HGB 25.5 pG CALC (26.0-32.0); MONO% 5.5 % (2-13); NEUT# 4.71 thou/uL (2.00-7.15); NEUT% 71.9 % (42-76); RED BLOOD COUNT 3.41 mill/uL (4.20-5.60)
[2023-01-27 06:31] LABS: BILIRUBIN, TOTAL 0.5 mg/dL (0.02-1.3)
--- NOTE | 2023-01-27 07:38 | NUR ---
PT RESTING IN BED AWAKE AND ALERT. PT STATES FEELING NAUSEAS. MEDICATED. ASSESSMENT ALLOWED. TELE MONITOR IN PLACE. CONTINOUS MONITORING PER ED. UPDATED PT IN CURRENT PLAN OF CARE. PT INDICATED UNDERSTANING. FALL/SAFTEY PRCAUTION IN PLACE. CALL LIGHT WITHIN REACH
--- NOTE | 2023-01-27 12:24 | NUR ---
PT RESTING IN BED EATING LUNCH. BREATHING EVEN AND UNLABORED. STATES PHENERGAN SUBSIDED NAUSEA. PT TOLERATING FOOD WELL. STATES NO OTHER NEEDS AT THIS TIME. FALL/SAFTEY PRECAUTION IN PLACE. CALL LIGHT WITHIN REACH.
--- NOTE | 2023-01-27 16:36 | NUR ---
PT RESTING IN BED RECIEVING BREATHING TREATMENT WITH RT AT BEDSIDE. FALL/SAFTEY PRECAUTION IN PLACE. CALL LIGHT WIHTIN REACH
--- NOTE | 2023-01-27 20:00 | NUR ---
RECEIVED REPOR FROM NURSE PARRY, PATIENT RESTING IMN BED WATCHING TV, IV ON RFA NS@ 50 CC/HR NFUSING WELL, HOOKED ON TELEMETRY, PATIENT ALERT ORINTED DID COMPLAINT OF SORETHROAT, NO WHITE PLAQUES NOTED, THROAT APPEARS RED INFLAMMED, MD AWARE ORDER IN PLACE, DENIES NAUSEA AT THIS TIME, CALL LIGHT IN REACH.
[2023-01-28] VITALS (9 sets, daily range): BP systolic 90–145; BP diastolic 53–107
--- NOTE | 2023-01-28 | NUR ---
PATIENT RESTING WITH EYES CLSOED, NOT IN DISTRESS, BEATHING EVEN UNLABORED, CALL LIGHT IN REACH.
--- NOTE | 2023-01-28 03:51 | NUR ---
PATIENT NOT IN DISTRESS, BREATHING UNLABORED, NO DSICOMFORTS NOTED AT THIS TIME, CALL LIGHT IN REACH.
[2023-01-28 05:49] LABS: BASO% 0.3 % (0-3); EOS% 1.7 % (0-8); HEMATOCRIT 30.8 % (37.0-47.0); HEMOGLOBIN 9.3 g/dl (12.0-16.0); IMMATURE GRANULOCYTES 0.8 % (0.0-5.0); LYMPH% 27.9 % (15-41); MEAN CELL VOLUME 84.4 fL CALC (80.0-100.0); MEAN CORPUSCULAR HGB 25.5 pG CALC (26.0-32.0); MEAN CORPUSCULAR HGB CONC 30.2 g/dL CAL (32.0-36.0); MONO% 5.9 % (2-13); NEUT# 4.12 thou/uL (2.00-7.15); NEUT% 63.4 % (42-76); RED BLOOD COUNT 3.65 mill/uL (4.20-5.60); RED CELL DISTRI WIDTH 19.2 % (11.5-15.5)
[2023-01-28 06:22] LABS: ALBUMIN 3.8 g/dL (3.2-5.0); BILIRUBIN, TOTAL 0.4 mg/dL (0.02-1.3); CREATININE 1.2 mg/dL (0.5-1.0); POTASSIUM 3.3 mmol/l (3.5-5.1); TOTAL PROTEIN 6.2 g/dL (6.3-8.2)
--- NOTE | 2023-01-28 08:00 | NUR ---
BEDSIDE REPORT RECIEVED FROM TRAVEL ADMINISTRATOR, WHITEBOARD INTACT, PATIENT SAFETY PRECAUTIONS IN PLACE. NO S/S OF DISTRESS.
--- NOTE | 2023-01-28 12:00 | NUR ---
patient having waves of dizziness while standing and lying, provider notified, orthos ordered,patient is stable, no s/s of distress, educated the patient on using the call light before getting up. patient safety precautions in place.
--- NOTE | 2023-01-28 16:00 | NUR ---
PATIENT ORTHOS OBTAINED SEE CHART, PROVIDER NOTIFIED, PATIENT STABLE NO S/S OF DISTRESS, PATIENT SAFETY PRECAUTIONS IN PLACE.
--- NOTE | 2023-01-28 20:00 | NUR ---
RECEIVED REPORT FROM NURSE RAMIREZ, PATIENT RESTING SITTING IN BED, WATCHING TV, DENIES NAUSEA/VOMITTING, PATIENT ONGOING IV NS @ 50CC/HR INFUSING WELL ON RFA, HOOKED ON TELEMETRY, LUNG SOUNDS DIMINISHED BILAT UPPER LOBES AND WHEEZING ON LOWER LOBES, ACTIVE BOWEL SOUNDS LBM 6/7, TRACE OF ANKLE EDEMA NOTED BILAT, CALL LIGHT IN REACH.
[2023-01-29] VITALS (8 sets, daily range): BP systolic 95–143; BP diastolic 31–86
--- NOTE | 2023-01-29 | NUR ---
PATIENT RESTING IN BED, EYES CLOSED, BREATHING EVEN UNLABORED NOTE IN DISTRESS CALL LIGHT IN REACH.
--- NOTE | 2023-01-29 04:04 | NUR ---
PATIENT RESTING WITH EYES CLOSED, NOT IN DISTRESS CALL LIGHT IN REACH.
[2023-01-29 04:41] LABS: BASO% 0.3 % (0-3); EOS% 3.1 % (0-8); HEMOGLOBIN 8.4 g/dl (12.0-16.0); LYMPH% 28.2 % (15-41); MEAN CELL VOLUME 85.1 fL CALC (80.0-100.0); MEAN CORPUSCULAR HGB 25.5 pG CALC (26.0-32.0); MONO% 6.4 % (2-13); NEUT# 4.4 thou/uL (2.00-7.15); RED BLOOD COUNT 3.29 mill/uL (4.20-5.60); RED CELL DISTRI WIDTH 19.1 % (11.5-15.5)
[2023-01-29 04:43] LABS: ALBUMIN 3.5 g/dL (3.2-5.0); ALKALINE PHOSPHATASE 93 u/l (38-126); ANION GAP 11 (6-22 (CALC)); BUN 13 mg/dL (7-17); BUN/CREATININE RATIO 12 (12-20 (CALC)); CARBON DIOXIDE 23 mmol/l (22-30); CHLORIDE 108 mmol/l (95-108); CREATININE 1.1 mg/dL (0.5-1.0); GFR FOR AFR.AMER. > 60 ML/MIN (>=60 (CALC)); GFR OTHER RACES 53 ML/MIN (>=60 (CALC)); POTASSIUM 3.8 mmol/l (3.5-5.1); SGOT/AST 39 u/l (14-36); SODIUM 138 mmol/l (137-146); TOTAL PROTEIN 5.9 g/dL (6.3-8.2)
[2023-01-29 04:45] LABS: BILIRUBIN, TOTAL 0.2 mg/dL (0.02-1.3)
--- NOTE | 2023-01-29 07:27 | NUR ---
RECIEVED BEDSIDE REPORT, WHITEBOARD UPDATED, NO S/S OF DISTRESS, NO COMPLAINTS OF DIZZINESS THIS AM. PATIENT SAFETY MEASURES IN PLACE.
--- NOTE | 2023-01-29 12:00 | NUR ---
PATIENT UP IN ROOM , STATED MEDICATION HELPED HER DIZZINESS, EDUCATED ON FALLS RISK AT HOME, RISING SLOWLY BEING MINDFUL OF HOW SHE IS FEELING. PATIENT IS UNDERSTANDING OF TEACHING. NO S/S OF DISTRESS, PATIENT SAFETY PRECAUTIONS IN PLACE.
== END 2023-01-29 16:00 | disposition home or self-care (01) | DRG 684 ==
LOC: ED 09:16 → MS2 14:39
PROVIDERS: Family Medicine; Nurse Practitioner Family; ADMIT Internal Medicine; ATTEND Internal Medicine
DX: N17.9 Acute kidney failure, unspecified (principal); T50.2X5A Adverse effect of carbonic-anhydrase inhibitors, benzothiadiazides and other diuretics, initial encounter; E86.0 Dehydration; I95.9 Hypotension, unspecified; I11.0 Hypertensive heart disease with heart failure; I50.9 Heart failure, unspecified; I48.91 Unspecified atrial fibrillation; J44.9 Chronic obstructive pulmonary disease, unspecified; F41.9 Anxiety disorder, unspecified; F32.A Depression, unspecified; E66.01 Morbid (severe) obesity due to excess calories; Z86.711 Personal history of pulmonary embolism; Z87.891 Personal history of nicotine dependence; Z86.16 Personal history of COVID-19
CPT/HCPCS: G0378; J1650

== ENCOUNTER 2024-04-07 12:20 | Emergency (ER) | payer BC ==
[2024-04-07] VITALS (11 sets, daily range): BP systolic 135–163; BP diastolic 84–135
[~2024-04-07] VITALS: Ht 152.4 cm; Wt 90.0 kg
[~2024-04-07 12:20] MED LIST changes: +CARDIZEM CD120 MG PO; +CETIRIZINE10 MG PO; +CRESTOR20 MG PO; +ENTRESTO 24-261 TAB; +MECLIZINE25 MG PO; +SINGULAIR10 MG PO; +TOPROL XL50 MG PO
[2024-04-07] MEDS ORDERED: ONDANSETRON HCl 4 MG/2 ML SDV IV ONE (13:00)
[2024-04-07] MEDS ORDERED: SODIUM CHLORIDE 0.9% 1,000 ML IV ONE (13:00)
[2024-04-07 13:21] LABS: ALBUMIN 4.2 g/dL (3.2-5.0); BILIRUBIN, TOTAL 0.6 mg/dL (0.02-1.3); CREATININE 0.9 mg/dL (0.5-1.0); POTASSIUM 3.3 mmol/l (3.5-5.1); TOTAL PROTEIN 7.2 g/dL (6.3-8.2)
[2024-04-07 13:35] LABS: BASO% 0.1 % (0-3); EOS% 1.7 % (0-8); HEMOGLOBIN 11.2 g/dl (12.0-16.0); IMMATURE GRANULOCYTES 0.1 % (0.0-5.0); LYMPH% 26.2 % (15-41); MEAN CORPUSCULAR HGB 25.3 pG CALC (26.0-32.0); MEAN CORPUSCULAR HGB CONC 31.4 g/dL CAL (32.0-36.0); MONO% 5.7 % (2-13); NEUT# 4.8 thou/uL (2.00-7.15); NEUT% 66.2 % (42-76); RED BLOOD COUNT 4.43 mill/uL (4.20-5.60); RED CELL DISTRI WIDTH 21.1 % (11.5-15.5)
[2024-04-07 13:45] LABS: HEMATOCRIT 35.7 % (37.0-47.0); MEAN CELL VOLUME 80.6 fL CALC (80.0-100.0)
[2024-04-07] MEDS ORDERED: ZOFRAN4 MG/TAB PO (14:51)
== END 2024-04-07 15:30 | disposition home or self-care (01) | DRG 392 ==
LOC: ED 12:20
PROVIDERS: Family Medicine
DX: K52.9 Noninfective gastroenteritis and colitis, unspecified (principal); I11.0 Hypertensive heart disease with heart failure; I50.9 Heart failure, unspecified; J44.9 Chronic obstructive pulmonary disease, unspecified; I48.91 Unspecified atrial fibrillation; Z90.49 Acquired absence of other specified parts of digestive tract

== ENCOUNTER 2024-08-03 19:58 | Inpatient (IN) | payer BC ==
[2024-08-03] VITALS (10 sets, daily range): BP systolic 125–143; BP diastolic 64–84
[~2024-08-03] VITALS: Ht 152.4 cm; Wt 87.2 kg
[~2024-08-03 19:58] MED LIST changes: +CARVEDILOL12.5 MG PO; +QUETIAPINE FUM400 MG PO; +TRELEGY ELLIPTA1 AER; +ZOFRAN4 MG/TAB PO
--- NOTE | 2024-08-03 19:58 | NUR ---
PATIENT ARRIVED TYO ROOM 12 FOR BEDSIDE TRIAGE.
--- NOTE | 2024-08-03 20:00 | NUR ---
PATIENT TO CT, R SIDED DROOP NOTED ON PATIENT, PER PATIENT THIS STARTED ABOUT 6PM TONIGHT
--- NOTE | 2024-08-03 20:15 | NUR ---
PATIENT C/O R SIDED FACE DROOP, RIGHT SIDED WEAKNESS AND LOSS OF SENSATION TO 3 R ARMS, LEGS, AND RIDE SIDE OF FACE.
[2024-08-03 20:20] LABS: BASO% 0.2 % (0-3); EOS% 3.6 % (0-8); HEMATOCRIT 26.3 % (37.0-47.0); HEMOGLOBIN 8.4 g/dl (12.0-16.0); IMMATURE GRANULOCYTES 0.2 % (0.0-5.0); LYMPH% 25.3 % (15-41); MEAN CELL VOLUME 91.3 fL CALC (80.0-100.0); MEAN CORPUSCULAR HGB 29.2 pG CALC (26.0-32.0); MEAN CORPUSCULAR HGB CONC 31.9 g/dL CAL (32.0-36.0); MONO% 11.5 % (2-13); NEUT# 3.6 thou/uL (2.00-7.15); NEUT% 59.2 % (42-76); RED BLOOD COUNT 2.88 mill/uL (4.20-5.60)
[2024-08-03] MEDS ORDERED: methylPREDNISolone SODIUM SUCC 125 MG/2 ML SDV IV ONE (20:20)
[2024-08-03] MEDS ORDERED: DiphenhydrAMINE HCL 50 MG/ML SDV IV ONE (20:20)
[2024-08-03] MEDS ORDERED: FAMOTIDINE 10MG/ML 2ML SDV IV ONE (20:20)
[2024-08-03] MEDS ORDERED: TENECTEPLASE 50 MG/KIT IV ONE ×2 (20:30→20:35)
[2024-08-03 20:34] LABS: ALBUMIN 3.7 g/dL (3.2-5.0); ALKALINE PHOSPHATASE 95 u/l (38-126); ANION GAP 11 (6-22 (CALC)); BILIRUBIN, TOTAL 0.6 mg/dL (0.02-1.3); BUN 6 mg/dL (7-17); BUN/CREATININE RATIO 9 (12-20 (CALC)); CALCULATED LDLCHOLESTEROL 65 mg/dL (62-129 (CALC)); CARBON DIOXIDE 24 mmol/l (22-30); CHLORIDE 105 mmol/l (95-108); CHOLESTEROL HDL RATIO 1.9 (<4.4 (CALC)); CREATININE 0.7 mg/dL (0.5-1.0); ESTIMATED GFR 105 ML/MIN (>=90 (CALC)); HDL CHOLESTEROL 98 mg/dL (39.0-59.0); POTASSIUM 3.2 mmol/l (3.5-5.1); SGOT/AST 30 u/l (14-36); SODIUM 136 mmol/l (137-146); TOTAL CHOLESTEROL 187 mg/dl (0-199); TOTAL PROTEIN 6.5 g/dL (6.3-8.2); TOTAL TRIGLYCERIDES 119 mg/dl (0-149); VLDL CHOLESTROL 24 mg/dl (2-49 (CALC))
[2024-08-03 20:45] LABS: PROTHROMBIN TIME 10.6 SECONDS (9.0-12.5)
--- NOTE | 2024-08-03 20:48 | NUR ---
0208 CT BRAIN COMPLETED 2014 [facility] WITH NEUROLOGIST @2035 21.8 MG TENECTEPLASE GIVEN PER NEUROLOGIST ORDERS VERIFIED WITH Cornell GOMEZ RN @ 2047 PATIENT PREMEDICATED DUE TO ALLERGY TO IODINE AND CTA COMPLETED.
[2024-08-03] MEDS ORDERED: ONDANSETRON HCl 4 MG/2 ML SDV IV ONE (21:05)
--- NOTE | 2024-08-03 21:09 | NUR ---
PATIENT RETURNED TO ROOMM 12.
[2024-08-03] MEDS ORDERED: POTASSIUM CHLORIDE 20 MEQ/TAB PO ONE (21:15)
[2024-08-03] MEDS ORDERED: MAGNESIUM OXIDE 400 MG/TAB PO ONE (21:20)
[2024-08-03] MEDS ORDERED: ELIQUIS5 MG PO (21:49)
[2024-08-03] MEDS ORDERED: SODIUM CHLORIDE 0.9% 10 ML SYR IV PRN (22:05)
[2024-08-03] MEDS ORDERED: DEXTROSE 250 ML IV PRN (22:05)
--- NOTE | 2024-08-03 22:13 | NUR ---
CALL RECIEVED FROM DR MAGALLON. NOTIFIED WRITTER OF NEW STROKE ORDER SET ORDERS. ASKED LAB IF ORDERED BLOOD COULD BE AN ADD ON TO EXISITNG TUBES. PER LAB, NEW ORDERS ARE COAGULATION (BLUE) TOPS, LABS ARE ALSO UNABLE TO BE DRAWN FROM LINE DUE TO TNK ADMINISTRATION.
--- NOTE | 2024-08-03 22:30 | NUR ---
patient alert and oriented times 3. patient has minor right sided facial droop. sensation decrease to upper and lower right sided extremities. patient has right lower extremity drift and right upper limb ataxia. patient has no other focal neuro deficits noted. patient follows commands and answers all questions. patient stated stopped her eliquis 1 week prior becuase she was unable to afford the medication. Patient states extensive hx of CVA in family. patient states slight pain to right hand from previous IV attempt prior to thrombolytic. Pressure dressing inplace. Patient respirations even and unlabored.
[2024-08-03] MEDS ORDERED: CLARIFY DOSE PO PRN (22:40)
[2024-08-04] VITALS (81 sets, daily range): BP systolic 107–146; BP diastolic 61–109
--- NOTE | 2024-08-04 00:14 | NUR ---
PATIENT ASSITED TO BATHROOM VIA WHEELCHAIR.
[2024-08-04 00:49] LABS: URINE BILIRUBIN - DIPSTICK Negative (NEGATIVE); URINE BLOOD DIPSTICK Moderate (NEGATIVE); URINE COLOR Yellow; URINE GLUCOSE - DIPSTICK Negative (NEGATIVE); URINE KETONE Negative (NEGATIVE); URINE LEUK ESTERASE Negative (NEGATIVE); URINE NITRITE - DIPSTICK Negative (Negative); URINE PH 6.5 (4.5-8.0); URINE PROTEIN - DIPSTICK 30 mg/dL (NEG-TRACE); URINE SPECIFIC GRAVITY 1.015; URINE UROBILINOGEN - DIPSTICK 0.2 E.U./dL (0.2)
[2024-08-04 00:56] LABS: URINE SQUAMOUS EPITHELIAL CELL FEW EPI/hpf (0-FEW)
--- NOTE | 2024-08-04 02:04 | NUR ---
REPORT GIVEN TO Dixie GARCIA RN.
--- NOTE | 2024-08-04 03:20 | NUR ---
RECORDS REQUEST FAX SENT TO [facility] AND [facility], PATIENT HAD A GALLBLADDER STENT PLACED IN [facility] AND A RECENT KNEE SURGERY IN [place], PATIENT DOES NOT KNOW WHAT KIND OF METAL SHE HAS.
--- NOTE | 2024-08-04 03:41 | NUR ---
PT ARRIVED TO ICU BED 6 VIA STRETCHER @ APPROX. 0300. PT AMBULATED TO BSC, THEN TO BED W/ MIN. ASSIST. NIH COMPLETED W/ ER NURSE WITNESS. PT HAS MILD R SIDE DEFICITS, INCLUDING R FACIAL DROOP, R ARM DRIFT, AND SENSORY LOSS. SPEECH IS CLEAR, PT IS A + O TO PPT. PT HAS NO COMPLAINTS @ THIS TIME. WARM BLANKETS PROVIDED. EDUCATED PT ON NEED TO REASSESS STATUS FREQUENTLY DUE TO MEDICATION GIVEN. V/S STABLE, CALL LIGHT IN REACH
--- NOTE | 2024-08-04 05:56 | NUR ---
PT RESTFUL. NO SIGNIFICANT CHANGES NOTED. R SIDE DEFICITS ARE VERY MILD, MINOR SENSATION LOSS, AND WEAKNESS ON R SIDE EXTREMS NOTED. SWALLOW EVAL COMPLETED, PT HAD NO COMPLICATIONS. FLUIDS PROVIDED @ BEDSIDE. PT HAS NO COMPLAINTS. V/S STABLE. CALL LIGHT IS IN REACH
[2024-08-04] MEDS ORDERED: SODIUM CHLORIDE 0.9% 10 ML SYR IV SCH (06:00)
--- NOTE | 2024-08-04 06:11 | NUR ---
ADDING: PT ARRIVED W/ SWELLING IN L HAND FROM AN IV ATTEMPT FROM ER, AND SOME MILD BRUISING TO L UPP EXTREM. PT DOES NOT COMPLAIN OF ANY PAIN AT SITE.
--- NOTE | 2024-08-04 08:00 | NUR ---
REPORT RECEIVED FROM NIGHT NURSE. NIH COMPLETED WITH NIGHT NURSE, NIH SCORE OF 1 FOR DECREASED SENSATION IN RIGHT ARM. PATIENT AXO X3. S1S2 NOTED, NORMAL SINUS ON TELE. LUNG SOUNDS CLEAR, NO COUGH OR SOB NOTED. ABDOMEN SOFT, NON DISTENDED, NON TENDER, WTIH ACTIVE BOWEL SOUNDS. PULSES STRONG IN ALL EXTREMITIES. SKIN WDI. BRUSING NOTED TO UPPER LEFT EXTREMITY. SWELLING NOTED TO LEFT HAND. CALL LIGHT IN REACH.
[2024-08-04] MEDS ORDERED: CARVEDILOL 6.25 MG/TAB PO SCH (09:00)
[2024-08-04] MEDS ORDERED: PANTOPRAZOLE SODIUM Sesquihydr 40 MG/TAB PO SCH (09:00)
--- NOTE | 2024-08-04 09:46 | NUR ---
ST EVAL ORDER RECIEVED. PT IS CURRENTLY NPO FOR 24/HRS DUE TO TNK. NIB ASSEMBLER SPOKE TO ASHWIN PUCKETT VIA PHONE REGARDING PT. RN TO CLARIFY ST ORDER ORDER SPECIFIES SPEECH THERAPY TO EVAL IF PT FAILS RN DYSPHAGIA EVAL. NIB ASSEMBLER TO PUT PT ON HOLD UNTIL NPO STATUS LIFTED OR UNTIL CLARIFICATION ON ORDER IS RECIEVED.
--- NOTE | 2024-08-04 10:00 | NUR ---
PATIENT SITTING UP IN BED WATCHING TV. ALL NEEDS MET. CALL LIGHT IN REACH.
--- NOTE | 2024-08-04 12:00 | NUR ---
PATIENT SITTING UP IN BED. ALL NEEDS MET. CALL LIGHT IN REACH.
--- NOTE | 2024-08-04 14:00 | NUR ---
PATIENT TAKEN DOWN FOR MRI/ECHO.
--- NOTE | 2024-08-04 15:15 | NUR ---
PATIENT RETURNED FROM MRI/ECHO.
--- NOTE | 2024-08-04 16:00 | NUR ---
PATIENT SITTING UP IN BED WATCHING TV. DENIES NEEDS AT THIS TIME. CALL LIGHT IN REACH.
--- NOTE | 2024-08-04 18:00 | NUR ---
PATIENT LAYING DOWN IN BED WATCHING TV. ALL NEEDS MET. CALL LIGHT IN REACH.
--- NOTE | 2024-08-04 19:00 | NUR ---
SBAR RECEIVED FROM ASHWIN MARINELLI. PATIENT RESTING QUIETLY IN BED WATCHING TV. AWAKE, ALERT AND ORIENTED X4; VITALS WNL. NIH PERFORMED, SCORE 1 FOR RLE DRIFTING. PATIENT DENIES PAIN, HEADACHE, BLURRED VISION AT THIS TIME. NO DISTRESS NOTED, CALL LIGHT WITHIN REACH.
[2024-08-04] MEDS ORDERED: ATORVASTATIN CALCIUM 40 MG/TAB PO SCH (21:00)
[2024-08-04] MEDS ORDERED: MIRTAZAPINE 15 MG/TAB PO SCH (21:00)
[2024-08-04] MEDS ORDERED: QUEtiapine FUMERATE 100 MG/TAB PO SCH (21:00)
[2024-08-04] MEDS ORDERED: IPRATROPIUM-Albuterol 0.5MG-2.5MG/3 ML IN PRN (21:15)
--- NOTE | 2024-08-04 21:25 | NUR ---
Patient in bed watching tv. Assessment complete. Meds administered, patient tolerated well. Denies pain at this time. Call light within reach, bed in low position locked.
[2024-08-05] VITALS (36 sets, daily range): BP systolic 87–135; BP diastolic 50–84
--- NOTE | 2024-08-05 | NUR ---
Resting quietly, eyes closed. No distress noted. Call light within reach.
--- NOTE | 2024-08-05 02:00 | NUR ---
Continue to rest quietly. NIHSS performed, score 0. Denies headache and blurred vision. Call light within reach.
--- NOTE | 2024-08-05 04:19 | NUR ---
RESTING COMFORTABLY. DENIES PAIN AT THIS TIME. NO DISTRESS NOTED. CALL LIGHT WITHIN REACH.
[2024-08-05 05:48] LABS: HEMATOCRIT 23.7 % (37.0-47.0); HEMOGLOBIN 7.5 g/dl (12.0-16.0); MEAN CELL VOLUME 95.2 fL CALC (80.0-100.0); MEAN CORPUSCULAR HGB 30.1 pG CALC (26.0-32.0); MEAN CORPUSCULAR HGB CONC 31.6 g/dL CAL (32.0-36.0); RED BLOOD COUNT 2.49 mill/uL (4.20-5.60); RED CELL DISTRI WIDTH 27.7 % (11.5-15.5)
[2024-08-05 05:55] LABS: ALBUMIN 3.2 g/dL (3.2-5.0); BILIRUBIN, TOTAL 0.4 mg/dL (0.02-1.3); CREATININE 0.7 mg/dL (0.5-1.0); MAGNESIUM 1.5 mg/dL (1.6-2.3); POTASSIUM 3.2 mmol/l (3.5-5.1); TOTAL PROTEIN 5.5 g/dL (6.3-8.2)
[2024-08-05] MEDS ORDERED: POTASSIUM CHLORIDE 20 MEQ/TAB PO SCH (07:30)
--- NOTE | 2024-08-05 07:51 | NUR ---
REPORT RECEIVED FROM NIGHT NURSE. PATIENT AXO X3. S1S2 NOTED, NORMAL SINUS ON TELE. LUNG SOUNDS WHEEZY, REPIRATORY NOTIFIED FOR PRN BREATHING TREATMENT. ABDOMEN SOFT, NON DISTENDED, NON TENDER, WITH ACTIVE BOWEL SOUNDS. PULSES STRONG IN ALL EXTREMITIES. SKIN WDI. CALL LIGHT IN REACH.
--- NOTE | 2024-08-05 08:05 | NUR ---
TELE NEURO CAME ON TO ASSESS PATIENT AND DISCUSS PLAN OF CARE.
[2024-08-05] MEDS ORDERED: MAGNESIUM SULFATE HEPTAHYDRATE 50 ML IV SCH (08:30)
[2024-08-05] MEDS ORDERED: ASPIRIN EC 81 MG/TAB PO SCH (09:00)
[2024-08-05] MEDS ORDERED: SODIUM CHLORIDE 0.9% 250 ML IV PRN (09:05)
--- NOTE | 2024-08-05 09:15 | NUR ---
PHYSICAL THERAPY AT BEDSIDE TO WORK WITH PATIENT.
[2024-08-05] MEDS ORDERED: APIXABAN BASE 5 MG TAB PO SCH (09:30)
--- NOTE | 2024-08-05 10:00 | NUR ---
PATIENT SITTING UP IN CHAIR. ALL NEEDS MET. CALL LIGHT IN REACH.
--- NOTE | 2024-08-05 12:00 | NUR ---
PATIENT SITTING UP IN BED TALKING ON THE PHONE. ALL NEEDS MET. CALL LIGHT IN REACH.
--- NOTE | 2024-08-05 14:00 | NUR ---
PATIENT SITTING UP IN BED WATCHING TV. ALL NEEDS MET. CALL LIGHT IN REACH.
--- NOTE | 2024-08-05 16:00 | NUR ---
PATIENT SITTING UP IN BED WATCHING TV. ALL NEEDS MET. CALL LIGHT IN REACH.
--- NOTE | 2024-08-05 18:00 | NUR ---
PATIENT LAYING IN BED WATCHING TV. DENIES NEEDS AT THIS TIME. CALL LIGHT IN REACH.
--- NOTE | 2024-08-05 20:00 | NUR ---
PATIENT SITTING UP IN BED WATCHING TV. ALERT AND ORIENTED X4, VITALS WNL. ASSESSMENT COMPLETE. DENIES PAIN AT THIS TIME. NO CONCERNS EXPRESSED. CALL LIGHT WITHIN REACH.
[2024-08-06] VITALS (11 sets, daily range): BP systolic 113–142; BP diastolic 67–95
--- NOTE | 2024-08-06 00:07 | NUR ---
RESTING QUIETLY EYES CLOSED. NIH PERFORMED, SCORE 0. DENIES PAIN AT THIS TIME. NO DISTRESS NOTED. CALL LIGHT WITHIN REACH.
[2024-08-06 05:39] LABS: HEMATOCRIT 28.8 % (37.0-47.0); HEMOGLOBIN 9.1 g/dl (12.0-16.0); MEAN CELL VOLUME 93.8 fL CALC (80.0-100.0); MEAN CORPUSCULAR HGB 29.6 pG CALC (26.0-32.0); MEAN CORPUSCULAR HGB CONC 31.6 g/dL CAL (32.0-36.0); RED BLOOD COUNT 3.07 mill/uL (4.20-5.60); RED CELL DISTRI WIDTH 25.2 % (11.5-15.5)
[2024-08-06 06:02] LABS: ALBUMIN 3.2 g/dL (3.2-5.0); CREATININE 0.7 mg/dL (0.5-1.0); TOTAL PROTEIN 5.5 g/dL (6.3-8.2)
[2024-08-06 06:17] LABS: BILIRUBIN, TOTAL 0.6 mg/dL (0.02-1.3); MAGNESIUM 2.1 mg/dL (1.6-2.3); POTASSIUM 3.9 mmol/l (3.5-5.1)
--- NOTE | 2024-08-06 08:00 | NUR ---
PT IS SITTING IN BED AWAKE. CALL LIGHT IN REACH.
[2024-08-06] MEDS ORDERED: ELIQUIS5 MG PO (08:53)
[2024-08-06] MEDS ORDERED: ATORVASTATIN CA40 MG PO (08:55)
--- NOTE | 2024-08-06 10:00 | NUR ---
PT IS SITTING IN BED AWAKE. CALL LIGHT IN REACH.
--- NOTE | 2024-08-06 11:15 | NUR ---
Discharge instructions given. Patient verbalizes understanding of same. Discharged in stable condition via Wheelchair to Home with staff. All belongings sent with pt.IV AND TELEMETRY REMOVED.
--- NOTE | 2024-08-07 16:35 | NUR ---
PATIENT CONTACTED THIS UNIT BECAUSE ELIQUIS SCRIPT NOT RECEIVED BY PHARMACY. SCRIPT PRINTED AND FAXED TO PHARMACY ON FILE
== END 2024-08-06 11:15 | disposition home or self-care (01) | DRG 62 ==
LOC: ED 19:58 → ED-I 21:14 → ED 21:26 → ICU 21:27
PROVIDERS: Internal Medicine; ADMIT Internal Medicine; ATTEND Internal Medicine
PROC: 3E03317 Introduction of Other Thrombolytic into Peripheral Vein, Percutaneous Approach (ICD-10-PCS; principal; 2024-08-03)
PROC: 30233N1 Transfusion of Nonautologous Red Blood Cells into Peripheral Vein, Percutaneous Approach (ICD-10-PCS; 2024-08-05)
DX: I63.9 Cerebral infarction, unspecified (principal); E87.1 Hypo-osmolality and hyponatremia; G81.91 Hemiplegia, unspecified affecting right dominant side; R29.810 Facial weakness; R20.2 Paresthesia of skin; R29.705 NIHSS score 5; I11.0 Hypertensive heart disease with heart failure; I50.9 Heart failure, unspecified; I48.91 Unspecified atrial fibrillation; J44.9 Chronic obstructive pulmonary disease, unspecified; E83.51 Hypocalcemia; E87.6 Hypokalemia; D64.9 Anemia, unspecified; K21.9 Gastro-esophageal reflux disease without esophagitis; F17.200 Nicotine dependence, unspecified, uncomplicated; T45.516A Underdosing of anticoagulants, initial encounter; Z91.120 Patient's intentional underdosing of medication regimen due to financial hardship; Z86.711 Personal history of pulmonary embolism; Z86.16 Personal history of COVID-19; Z79.01 Long term (current) use of anticoagulants
CPT/HCPCS: J1200; J2405; J3101; J3475; P9016; Q9967

== ENCOUNTER 2024-10-18 08:23 | Observation (INO) | payer BC ==
[2024-10-18] VITALS (31 sets, daily range): BP systolic 92–138; BP diastolic 49–92
[~2024-10-18] VITALS: Ht 152.4 cm; Wt 79.5 kg
[~2024-10-18 08:23] MED LIST changes: +ATORVASTATIN CA40 MG PO
[2024-10-18] MEDS ORDERED: DiphenhydrAMINE HCL 50 MG/ML SDV IV ONE (08:50)
[2024-10-18] MEDS ORDERED: methylPREDNISolone SODIUM SUCC 125 MG/2 ML SDV IV ONE (08:50)
[2024-10-18 09:00] LABS: BASO% 0.2 % (0-3); EOS% 2.2 % (0-8); HEMATOCRIT 30.1 % (37.0-47.0); HEMOGLOBIN 9.5 g/dl (12.0-16.0); IMMATURE GRANULOCYTES 0.2 % (0.0-5.0); LYMPH% 23.9 % (15-41); MEAN CORPUSCULAR HGB 33.9 pG CALC (26.0-32.0); MEAN CORPUSCULAR HGB CONC 31.6 g/dL CAL (32.0-36.0); MONO% 8.6 % (2-13); NEUT# 2.96 thou/uL (2.00-7.15); NEUT% 64.9 % (42-76); RED BLOOD COUNT 2.8 mill/uL (4.20-5.60); RED CELL DISTRI WIDTH 28.8 % (11.5-15.5)
[2024-10-18 09:11] LABS: MEAN CELL VOLUME 107.5 fL CALC (80.0-100.0)
[2024-10-18 09:15] LABS: ANION GAP 12 (6-22 (CALC)); BUN 11 mg/dL (7-17); BUN/CREATININE RATIO 14 (12-20 (CALC)); CARBON DIOXIDE 25 mmol/l (22-30); CHLORIDE 108 mmol/l (95-108); CREATININE 0.8 mg/dL (0.5-1.0); ESTIMATED GFR 89 ML/MIN (>=90 (CALC)); POTASSIUM 4.4 mmol/l (3.5-5.1); SODIUM 141 mmol/l (137-146); TOTAL CHOLESTEROL 176 mg/dl (0-199); TOTAL PROTEIN 6.4 g/dL (6.3-8.2)
[2024-10-18 09:22] LABS: PROTHROMBIN TIME 10.7 SECONDS (9.0-12.5)
[2024-10-18 09:23] LABS: ALKALINE PHOSPHATASE 127 u/l (38-126); BILIRUBIN, TOTAL 1.2 mg/dL (0.02-1.3); CHOLESTEROL HDL RATIO 1.5 (<4.4 (CALC)); HDL CHOLESTEROL 114 mg/dL (39.0-59.0); SGOT/AST 48 u/l (14-36); TOTAL TRIGLYCERIDES 733 mg/dl (0-149); VLDL CHOLESTROL 147 mg/dl (2-49 (CALC))
[2024-10-18] MEDS ORDERED: SODIUM CHLORIDE 0.9% 1,000 ML IV ONE (09:35)
[2024-10-18] MEDS ORDERED: MECLIZINE HCL 25 MG/TAB PO ONE (09:35)
[2024-10-18 13:11] LABS: URINE BILIRUBIN - DIPSTICK Negative (NEGATIVE); URINE BLOOD DIPSTICK Trace-intact (NEGATIVE); URINE GLUCOSE - DIPSTICK Negative (NEGATIVE); URINE KETONE Negative (NEGATIVE); URINE LEUK ESTERASE Negative (NEGATIVE); URINE NITRITE - DIPSTICK Negative (Negative); URINE PROTEIN - DIPSTICK Negative (NEG-TRACE); URINE SPECIFIC GRAVITY 1.015; URINE UROBILINOGEN - DIPSTICK 0.2 E.U./dL (0.2)
[2024-10-18 13:23] LABS: URINE COLOR Yellow
[2024-10-18] MEDS ORDERED: DEXTROSE 250 ML IV PRN (13:30)
[2024-10-18] MEDS ORDERED: ACETAMINOPHEN 325 MG/TAB PO PRN (13:30)
[2024-10-18] MEDS ORDERED: MAGNESIUM HYDROXIDE 30 ML UDC PO PRN (13:30)
[2024-10-18] MEDS ORDERED: ASPIRIN 81 MG/TAB PO SCH (14:00)
[2024-10-18] MEDS ORDERED: INSULIN LISPRO 100 UNITS/ML ML SC SCH (17:00)
[2024-10-18] MEDS ORDERED: QUEtiapine FUMERATE 100 MG/TAB PO SCH (21:00)
[2024-10-18] MEDS ORDERED: APIXABAN BASE 5 MG TAB PO SCH (21:00)
[2024-10-18] MEDS ORDERED: MIRTAZAPINE 15 MG/TAB PO SCH (21:00)
[2024-10-18] MEDS ORDERED: CARVEDILOL 6.25 MG/TAB PO SCH (21:00)
[2024-10-18] MEDS ORDERED: ATORVASTATIN CALCIUM 40 MG/TAB PO SCH (21:00)
[2024-10-19] VITALS (24 sets, daily range): BP systolic 84–150; BP diastolic 34–115
[2024-10-19] MEDS ORDERED: IPRATROPIUM-Albuterol 0.5MG-2.5MG/3 ML IN PRN (00:25)
[2024-10-19] MEDS ORDERED: Zaleplon 5 MG/CAP PO SCH (01:39)
[2024-10-19] MEDS ORDERED: BENZONATATE 200 MG/CAP PO SCH ×2 (02:37→09:00)
[2024-10-19] MEDS ORDERED: IPRATROPIUM-Albuterol 0.5MG-2.5MG/3 ML IN SCH (07:00)
[2024-10-19 07:29] LABS: BASO% 0.2 % (0-3); HEMATOCRIT 22.8 % (37.0-47.0); HEMOGLOBIN 7.6 g/dl (12.0-16.0); IMMATURE GRANULOCYTES 0.2 % (0.0-5.0); LYMPH% 23.6 % (15-41); MEAN CELL VOLUME 105.1 fL CALC (80.0-100.0); MEAN CORPUSCULAR HGB CONC 33.3 g/dL CAL (32.0-36.0); MONO% 6.5 % (2-13); NEUT# 2.8 thou/uL (2.00-7.15); NEUT% 69.5 % (42-76); RED BLOOD COUNT 2.17 mill/uL (4.20-5.60); RED CELL DISTRI WIDTH 29.2 % (11.5-15.5)
[2024-10-19] MEDS ORDERED: BENZONATATE200 MG PO (07:36)
[2024-10-19 07:38] LABS: BILIRUBIN, TOTAL 0.8 mg/dL (0.02-1.3); CREATININE 0.8 mg/dL (0.5-1.0); MAGNESIUM 1.7 mg/dL (1.6-2.3); POTASSIUM 3.7 mmol/l (3.5-5.1)
[2024-10-19 07:39] LABS: ALBUMIN 2.9 g/dL (3.2-5.0); TOTAL PROTEIN 5.1 g/dL (6.3-8.2)
[2024-10-19] MEDS ORDERED: ALLOPURINOL 100 MG/TAB PO SCH (09:00)
[2024-10-19] MEDS ORDERED: PARoxetine 10 MG/TAB PO SCH (09:00)
[2024-10-19] MEDS ORDERED: PANTOPRAZOLE SODIUM Sesquihydr 40 MG/TAB PO SCH (09:00)
== END 2024-10-19 10:15 | disposition home or self-care (01) | DRG 149 ==
LOC: ED 08:23 → ED-I 13:00 → ED 13:27 → ED-I 13:28 → ICU 23:20
PROVIDERS: Family Medicine; Nurse Practitioner Family; ADMIT Internal Medicine; ATTEND Internal Medicine
PROC: 02HV33Z Insertion of Infusion Device into Superior Vena Cava, Percutaneous Approach (ICD-10-PCS; principal; 2024-10-18)
DX: R42 Dizziness and giddiness (principal); J44.0 Chronic obstructive pulmonary disease with (acute) lower respiratory infection; R07.9 Chest pain, unspecified; R41.0 Disorientation, unspecified; J20.9 Acute bronchitis, unspecified; I11.0 Hypertensive heart disease with heart failure; I50.9 Heart failure, unspecified; I48.91 Unspecified atrial fibrillation; F32.A Depression, unspecified; F41.9 Anxiety disorder, unspecified; E66.9 Obesity, unspecified; Z79.01 Long term (current) use of anticoagulants; Z86.73 Personal history of transient ischemic attack (TIA), and cerebral infarction without residual deficits; F17.200 Nicotine dependence, unspecified, uncomplicated; Z86.711 Personal history of pulmonary embolism
CPT/HCPCS: J1200; Q9967